=== PATIENT | female | born 1995 | race Caucasian/White ===

== ENCOUNTER 2018-12-20 22:32 | Emergency (ER) | payer OTHER ==
--- NOTE | 2018-12-20 22:43 | ED Physician Documentation ---
PD HPI FEMALE - Stated complaint Stated Complaint: FEM /8 WKS PREG - History obtained from History obtained from: Patient - History of Present Illness Timing - onset: How many days ago (6) Timing - duration: Days (6) Timing - details: Abrupt onset Associated symptoms: Pelvic pain, Vaginal bleeding Contributing factors: [employer] History: G (1), P (0) Recently seen: Clinic - Additional information Additional information: This is a 22-year-old who presents with complaints that she is last menstrual. Was October 25 she had been out hiking earlier last week Friday or Friday when she started to have a little bit of pink discharge. [place] hCG it was 31,000. She did not get any follow-up levels and she is unsure of her blood type. She has been resting for most of the week because she is been sick with a stuffy nose and a low-grade fever coughing. Today she was feeling better and more energetic so she did a lot of cleaning and tonight she was still noticing pink discharge and developed some pelvic cramping. She rates the cramping at a 5 out of 10. She has not felt dizzy. This is her first . Review of Systems Constitutional: reports: Fever Nose: reports: Rhinorrhea / runny nose, Congestion Respiratory: reports: Cough GI: reports: Abdominal Pain : reports: LMP (October 25), Vaginal bleeding PD PAST MEDICAL HISTORY - Allergies Allergies/Adverse Reactions: Allergies Allergy/AdvReac Type Severity Reaction Status Date / Time No Known Drug Allergies Allergy Verified 12/20/18 22:46 PD ED PE NORMAL - Vitals Vital signs reviewed: Yes - General General: Alert and oriented X 3, No acute distress, Well developed/nourished - HEENT HEENT: PERRL, Moist mucous membranes, Pharynx benign - Neck Neck: Supple, no meningeal sign, No adenopathy, Other (Thyroid is enlarged particularly the left lobe without palpable nodules.) - Cardiac Cardiac: RRR, No murmur - Respiratory Respiratory: No respiratory distress, Clear bilaterally, Other (She does have a dry cough.) - Abdomen Abdomen: Normal bowel sounds, Soft, Non tender, Non distended - Female Female : Deferred - Derm Derm: Other (Patient has vitiligo. She feels slightly clammy.) - Neuro Neuro: Alert and oriented X 3, Normal speech, Other (No gross neurological deficit.) - Psych Psych: Normal mood, Normal affect Results - Vitals Vitals: Vital Signs - 24 hr 12/20/18 12/21/18 12/21/18 22:38 01:43 02:55 Temperature 37.2 C 36.8 C Heart Rate 88 84 79 Respiratory 16 16 16 Rate Blood Pressure 135/101 H 126/82 H 126/85 H O2 Saturation 100 98 98 Oxygen O2 Source Room air - Labs Labs: Laboratory Tests 12/20/18 12/20/18 12/20/18 22:55 22:55 23:00 WBC 9.9 RBC 3.69 L Hgb 11.1 L Hct 33.2 L MCV 90.0 MCH 30.1 MCHC 33.4 RDW 12.8 Plt Count 250 MPV 10.2 Neut # (Auto) 5.7 Lymph # (Auto) 3.2 [place] # (Auto) 0.7 Eos # (Auto) 0.2 Baso # (Auto) 0.1 Absolute Nucleated RBC 0.00 Nucleated RBC % 0.0 HCG, Quant Urine Color YELLOW Urine Clarity CLEAR Urine pH 6.5 Ur Specific [place] 1.015 Urine Protein NEGATIVE Urine Glucose (UA) NEGATIVE Urine Ketones NEGATIVE Urine Occult Blood NEGATIVE Urine Nitrite NEGATIVE Urine Bilirubin NEGATIVE Urine Urobilinogen 0.2 (NORMAL) Ur Leukocyte Esterase NEGATIVE Ur Microscopic Review NOT INDICATED Urine Culture Comments NOT INDICATED Blood Type A POSITIVE 12/21/18 02:25 WBC RBC Hgb Hct MCV MCH MCHC RDW Plt Count MPV Neut # (Auto) Lymph # (Auto) [place] # (Auto) Eos # (Auto) Baso # (Auto) Absolute Nucleated RBC Nucleated RBC % HCG, Quant 82736.00 Urine Color Urine Clarity Urine pH Ur Specific [place] Urine Protein Urine Glucose (UA) Urine Ketones Urine Occult Blood Urine Nitrite Urine Bilirubin Urine Urobilinogen Ur Leukocyte Esterase Ur Microscopic Review Urine Culture Comments Blood Type - Rads (name of study) ultrsound Radiology: See rad report PD MEDICAL DECISION MAKING - ED course Complexity details: reviewed results, d/w patient ED course: The patient's blood type is a positive. The ultrasound showed a intrauterine consistent with 6-week gestation. Heart rate was a little slow at 115. Results were discussed with the patient a quantitative hCG is been added to her labs but had not yet been returned at the time of her discharge. OB can follow that report. Departure - Departure Disposition: 01 Home, Self Care Clinical Impression: Vaginal bleeding affecting early Condition: Good Instructions: Bleeding Early Preg Follow-Up: your,doctor [Other] Comments: The OB doctor can follow-up on the hcg level and decide if a repeat is needed. Pelvic rest - no tampons or intercourse until cleared by the OB. Return if increasing pain or other problems arise. Discharge Date/Time: 12/21/18 02:56
[2018-12-20 23:06] LABS: BILIRUBIN,URINE NEGATIVE (NEGATIVE); GLUCOSE, URINE (UA) NEGATIVE (NEGATIVE); KETONES,URINE (UA) NEGATIVE (NEGATIVE); LEUKOCYTE ESTERASE, URINE NEGATIVE (NEGATIVE); NITRITE,URINE NEGATIVE (NEGATIVE); OCCULT BLOOD,URINE NEGATIVE (NEGATIVE); PH,URINE 6.5 PH (5.0-7.5); PROTEIN,URINE NEGATIVE (NEGATIVE); UROBILINOGEN,URINE 0.2 (NORMAL) E.U./dL (NORMAL)
[2018-12-20 23:10] LABS: BASOPHILS # (AUTO) 0.1 10^3/uL (0.0-0.1); BASOPHILS % (AUTO) 0.9 %; EOSINOPHILS # (AUTO) 0.2 10^3/uL (0.0-0.7); EOSINOPHILS % (AUTO) 2.4 %; HGB - HEMOGLOBIN 11.1 g/dL (12.0-16.0); LYMPHOCYTES # (AUTO) 3.2 10^3/uL (1.5-3.5); LYMPHOCYTES % (AUTO) 31.8 %; MEAN CORPUSCULAR HEMOGLOBIN 30.1 pg (27.0-31.0); MEAN CORPUSCULAR HGB CONC 33.4 g/dL (32.0-36.0); MEAN PLATELET VOLUME 10.2 fL (7.9-10.8); MONOCYTES # (AUTO) 0.7 10^3/uL (0.0-1.0); MONOCYTES % (AUTO) 7.4 %; NEUTROPHILS # (AUTO) 5.7 10^3/uL (1.5-6.6); NEUTROPHILS % (AUTO) 57.1 %; PLT - PLATELET COUNT 250 10^3/uL (130-450); RED BLOOD COUNT 3.69 10^6/uL (4.20-5.40); RED CELL DISTRIBUTION WIDTH 12.8 % (12.0-15.0); WHITE BLOOD COUNT 9.9 x10^3/uL (4.8-10.8)
[2018-12-20 23:10] LABS: CLARITY,URINE CLEAR (CLEAR)
--- NOTE | 2018-12-21 00:11 | Ultrasound Report ---
Reason: vaginal bleeding; Procedure Date: 12/20/2018 Accession Number: [id number] / [id number] Procedure: US - OB First Trimester CPT Code: FULL RESULT: EXAM: FIRST TRIMESTER OBSTETRIC ULTRASOUND (Less than 11 weeks) EXAM DATE: 12/20/2018 11:41 PM. CLINICAL HISTORY: Vaginal bleeding; . LMP: 10/25/2018. COMPARISONS: None. TECHNIQUE: Transabdominal and transvaginal ultrasound examination with static image documentation. CLINICAL DATES: EGA 8 weeks 0 days with CHRISTAL 08/01/2019 based on LMP. ASSESSMENT: Gestational Sac: Single intrauterine. Mean gestational sac diameter: 15 mm = 6 weeks 2 days. Embryo: CRL (crown-rump length) 5.7 mm = 6 weeks 3 days. Cardiac activity: 115 beats per minute. Yolk sac: 4 mm. Amniotic fluid: Not accurately assessed at this gestational age. Early placenta: Not visible at this gestational age. Other: No perigestational fluid collection demonstrated. MATERNAL STRUCTURES: Uterus: Anteverted. Unremarkable. Cervix: Closed. Right Ovary/Adnexa: The ovary measures 3.6 x 2.3 x 2.8 cm, volume 12.1 cc. Corpus luteum measuring 2.4 x 1.8 x 2.1 cm. Left Ovary/Adnexa: The ovary measures 3.1 x 1.3 x 1.0 cm, volume 2.1 cc. Unremarkable. Paraovarian cyst measuring 1.7 x 1.5 x 1.2 cm. Free Fluid: None. Other: None. IMPRESSION: 1. Single viable intrauterine at EGA 6 weeks 3 days with CHRISTAL 08/12/2019 based on crown-rump length, which is discordant with clinical dates. 2. Assigned dating is CHRISTAL 08/12/2019 based on current US. 3. Borderline heart rate of 115 bpm. RADIA
[2018-12-21 02:56] VITALS: BP 126/85
== END 2018-12-21 02:56 | disposition home or self-care (01) ==
LOC: ED 22:32
DX: O20.9 Hemorrhage in early pregnancy, unspecified (principal); Z3A.08 8 weeks gestation of pregnancy
CPT/HCPCS: 36415; 76801; 76817; 81001; 81003; 84702; 85025; 86900; 86901; 87086; 99282; 99283

== ENCOUNTER 2019-06-22 10:11 | Emergency (ER) | payer OTHER ==
[2019-06-22 10:30] VITALS: BP 120/80
--- NOTE | 2019-06-22 10:55 | ED Physician Documentation ---
History of Present Illness - Stated complaint Stated Complaint: FEMALE - 32WK OB - Chief complaint Chief Complaint: General - History obtained from History obtained from: Patient - History of Present Illness Timing: How many weeks ago (2) Pain level max: 3 Pain level now: 2 - Additonal information Additional information: 23-year-old female, 32 weeks , 1 para 0. She complains of vaginal discharge for the last week and 1/2 to 2 weeks. She had been on Monistat and metronidazole earlier in her . Nothing recently. No change in sexual partners. No STD exposure. No fevers. No vaginal bleeding. No spotting. No abdominal pain. States that the discharge is white. Review of Systems Constitutional: denies: Fever, Chills Cardiac: denies: Chest pain / pressure Respiratory: denies: Cough GI: denies: Vomiting, Diarrhea : denies: Dysuria, Frequency, Hesitancy Skin: denies: Rash PD PAST MEDICAL HISTORY - Past Medical History Past Medical History: No - Past Surgical History Past Surgical History: No - Present Medications Home Medications: Ambulatory Orders Medication Instructions Recorded Confirmed Miconazole Nitrate [Miconazole 7] 1 applic VG DAILY 7 Days #1 06/22/19 cream.[email or web address] - Allergies Allergies/Adverse Reactions: Allergies Allergy/AdvReac Type Severity Reaction Status Date / Time iodine Allergy Hives Verified 06/22/19 10:24 - Social History Does the pt smoke?: No Smoking Status: Never smoker Does the pt drink ETOH?: No Does the pt have substance abuse?: No - Immunizations Immunizations are current?: Yes PD ED PE NORMAL - Vitals Vital signs reviewed: Yes - General General: Alert and oriented X 3, No acute distress, Well developed/nourished - HEENT HEENT: Moist mucous membranes - Neck Neck: Supple, no meningeal sign - Cardiac Cardiac: RRR - Respiratory Respiratory: Clear bilaterally - Abdomen Abdomen: Soft, Non tender, Other (Gravid) - Female Female : Pt declined - Derm Derm: Warm and dry - Neuro Neuro: Alert and oriented X 3 - Psych Psych: Normal mood, Normal affect Results - Vitals Vitals: Vital Signs - 24 hr 06/22/19 10:24 Temperature 36.9 C Heart Rate 80 Respiratory 16 Rate Blood Pressure 120/80 O2 Saturation 99 Oxygen O2 Source Room air - Labs Labs: Laboratory Tests 06/22/19 06/22/19 10:50 10:55 Urine Color YELLOW Urine Clarity CLEAR Urine pH 7.0 Ur Specific [place] 1.020 Urine Protein NEGATIVE Urine Glucose (UA) NEGATIVE Urine Ketones NEGATIVE Urine Occult Blood NEGATIVE Urine Nitrite NEGATIVE Urine Bilirubin NEGATIVE Urine Urobilinogen 0.2 (NORMAL) Ur Leukocyte Esterase TRACE H Urine RBC 0-5 Urine WBC 0-3 Ur Squamous Epith Cells RARE Squamous Urine Bacteria Rare Urine Mucus Few Strands Ur Microscopic Review INDICATED Urine Culture Comments INDICATED C. glabrata (PCR) NEGATIVE C. krusei (PCR) NEGATIVE Judi species DNA POSITIVE A T. vaginalis (PCR) NEGATIVE Bact Vaginosis (PCR) NEGATIVE PD MEDICAL DECISION MAKING - ED course Complexity details: reviewed results, re-evaluated patient, considered differential, d/w patient, d/w wine consultant ED course: Swabs for bacterial vaginitis and gonorrhea, chlamydia, trichomonas, etc. were sent to the lab. We will have her call back for the results so that we can call in prescriptions for her. Patient counseled regarding signs and symptoms for which I believe and urgent re-evaluation would be necessary. Patient with good understanding of and agreement to plan and is comfortable going home at this time This document was made in part using voice recognition software. While efforts are made to proofread this document, sound alike and grammatical errors may occur. Results were reviewed. Patient was called and will place back on miconazole. Discussed the case with OB, Dr. Daniel as well. Dr. Daniel also states that the patient can use Monistat once a week to help prevent recurrence for the remainder of her . The miconazole will be for 7 days. I called and discussed all results and plan of care with the patient. Prescription sent to [facility] in [place]. Departure - Departure Disposition: 01 Home, Self Care Clinical Impression: Vaginal discharge during Qualifiers: Trimester: third trimester Qualified Code(s): O26.893 - Other specified related conditions, third trimester Condition: Good Instructions: ED Vaginosis Bacterial Follow-Up: Weston Florentino ARNP [Primary Care Provider] - Within 1 week (if not better) Prescriptions: Miconazole Nitrate [Miconazole 7] 1 applic VG DAILY 7 Days #1 cream.appl Comments: Your swabs were sent to the lab today, the first swabs should be done before 3 PM today. If you do not hear from us by 3 PM, call back to the emergency department and we will check on your specimen. Return if you worsen Discharge Date/Time: 06/22/19 11:12
[2019-06-22 11:20] LABS: BILIRUBIN,URINE NEGATIVE (NEGATIVE); GLUCOSE, URINE (UA) NEGATIVE (NEGATIVE); KETONES,URINE (UA) NEGATIVE (NEGATIVE); LEUKOCYTE ESTERASE, URINE TRACE (NEGATIVE); NITRITE,URINE NEGATIVE (NEGATIVE); OCCULT BLOOD,URINE NEGATIVE (NEGATIVE); PROTEIN,URINE NEGATIVE (NEGATIVE); UROBILINOGEN,URINE 0.2 (NORMAL) E.U./dL (NORMAL)
[2019-06-22 11:21] LABS: CLARITY,URINE CLEAR (CLEAR)
[2019-06-22 11:29] LABS: BACTERIA,URINE Rare /HPF (None Seen); MUCUS,URINE Few Strands; RBC,URINE 0-5 /HPF (0-5); SQUAMOUS EPITHELIAL CELL,UR RARE Squamous (<= Few)
[2019-06-22 13:09] LABS: CANDIDA GROUP DNA POSITIVE (NEGATIVE); CANDIDA KRUSEI DNA NEGATIVE (NEGATIVE); TRICHOMONAS VAGINALIS DNA NEGATIVE (NEGATIVE)
[2019-06-22 21:18] LABS: TRICHOMONAS VAGINALIS DNA NEGATIVE (NEGATIVE)
== END 2019-06-22 11:12 | disposition home or self-care (01) ==
LOC: ED 10:11
DX: O99.89 Other specified diseases and conditions complicating pregnancy, childbirth and the puerperium (principal); N89.8 Other specified noninflammatory disorders of vagina; Z3A.32 32 weeks gestation of pregnancy
CPT/HCPCS: 81001; 81003; 87086; 87491; 87591; 87661; 87801; 99283; 99284

== ENCOUNTER 2019-07-31 05:47 | Inpatient (IN) | payer OTHER ==
[2019-07-31 06:37] LABS: RUPTURE OF MEMBRANES PLUS POSITIVE (NEGATIVE)
[2019-07-31] MEDS ORDERED: AMPICILLIN 2 GM in SODIUM CHLORIDE 0.9% MINIBAG 100 ML IV ONE (07:02)
[2019-07-31 07:54] LABS: BASOPHILS # (AUTO) 0.1 10^3/uL (0.0-0.1); BASOPHILS % (AUTO) 0.5 %; EOSINOPHILS % (AUTO) 0.2 %; HGB - HEMOGLOBIN 12.2 g/dL (12.0-16.0); LYMPHOCYTES # (AUTO) 1.2 10^3/uL (1.5-3.5); LYMPHOCYTES % (AUTO) 10.1 %; MEAN CORPUSCULAR HEMOGLOBIN 30.1 pg (27.0-31.0); MEAN CORPUSCULAR HGB CONC 33.5 g/dL (32.0-36.0); MEAN CORPUSCULAR VOLUME 89.9 fL (81.0-99.0); MEAN PLATELET VOLUME 11.8 fL (7.9-10.8); MONOCYTES # (AUTO) 0.7 10^3/uL (0.0-1.0); MONOCYTES % (AUTO) 5.7 %; NEUTROPHILS # (AUTO) 9.9 10^3/uL (1.5-6.6); NEUTROPHILS % (AUTO) 83.1 %; PLT - PLATELET COUNT 222 10^3/uL (130-450); RED BLOOD COUNT 4.05 10^6/uL (4.20-5.40); RED CELL DISTRIBUTION WIDTH 13.7 % (12.0-15.0); WHITE BLOOD COUNT 11.9 x10^3/uL (4.8-10.8)
[2019-07-31] MEDS: LACTATED RINGERS 1,000 ML IV SCH ×3 (08:29→18:12)
[2019-07-31] MEDS: SODIUM CHLORIDE FLUSH 0.9% 10 ML SYRINGE IVP SCH ×2 (08:30→18:13)
[2019-07-31] MEDS: MAGNESIUM SULFATE 2 GRAM 2 GM/50 ML BAG IV SCH ×2 (09:58→10:23)
[2019-07-31 09:59] LABS: BASOPHILS # (AUTO) 0.1 10^3/uL (0.0-0.1); BASOPHILS % (AUTO) 0.4 %; EOSINOPHILS % (AUTO) 0.3 %; HGB - HEMOGLOBIN 11.2 g/dL (12.0-16.0); LYMPHOCYTES # (AUTO) 0.7 10^3/uL (1.5-3.5); LYMPHOCYTES % (AUTO) 6.4 %; MEAN CORPUSCULAR HEMOGLOBIN 29.1 pg (27.0-31.0); MEAN CORPUSCULAR HGB CONC 32.9 g/dL (32.0-36.0); MEAN CORPUSCULAR VOLUME 88.3 fL (81.0-99.0); MEAN PLATELET VOLUME 10.8 fL (7.9-10.8); MONOCYTES # (AUTO) 0.5 10^3/uL (0.0-1.0); MONOCYTES % (AUTO) 4.1 %; NEUTROPHILS # (AUTO) 10.2 10^3/uL (1.5-6.6); NEUTROPHILS % (AUTO) 88.4 %; PLT - PLATELET COUNT 206 10^3/uL (130-450); RED BLOOD COUNT 3.85 10^6/uL (4.20-5.40); RED CELL DISTRIBUTION WIDTH 13.8 % (12.0-15.0); WHITE BLOOD COUNT 11.6 x10^3/uL (4.8-10.8)
[2019-07-31] MEDS ORDERED: ROPIVACAINE 0.2% 200 MG/100 ML BAG EP ONE (10:03)
[2019-07-31] MEDS: MAGNESIUM SULFATE IN WATER 20 GM/500 ML IV.SOLN IV SCH ×2 (10:43→20:48)
[2019-07-31] MEDS ORDERED: LACTATED RINGERS 500 ML IV ONE (10:46)
[2019-07-31] MEDS ORDERED: ePHEDrine 50 MG/ML VIAL IVP PRN (10:46)
[2019-07-31] MEDS ORDERED: ONDANSETRON 4 MG/2 ML VIAL IVP PRN ×2 (10:46)
[2019-07-31] MEDS ORDERED: METOCLOPRAMIDE 10 MG/2 ML VIAL IVP PRN (10:46)
[2019-07-31] MEDS ORDERED: NALOXONE 0.4 MG/ML VIAL IVP PRN (10:46)
[2019-07-31] MEDS ORDERED: diphenhydrAMINE INJ 50 MG/ML VIAL IVP PRN ×2 (10:46)
[2019-07-31] MEDS ORDERED: NALBUPHINE 10 MG/ML AMP IVP PRN ×2 (10:46)
--- NOTE | 2019-07-31 10:52 | ANESTHESIA ---
Pre-Anesthesia VS, & Labs - Diagnosis Active labor, suspected pre eclampsia - Procedure Continuous labor epidural Vital Signs: Temp Pulse Resp BP Pulse Ox 36.7 C 83 18 147/97 H 07/31/19 06:01 07/31/19 06:01 07/31/19 06:01 07/31/19 06:01 Height 5 ft 1 in Weight (kg) 65.771 kg Body Mass Index 26.4 - NPO Other (ice chips) - Is Patient ?: Yes - Lab Results Current Lab Results: Laboratory Tests 07/31/19 09:50: Uric Acid 7.0, AST 20 07/31/19 09:50: WBC 11.6 H, RBC 3.85 L, Hgb 11.2 L, Hct 34.0 L, MCV 88.3, MCH 29.1, MCHC 32.9, RDW 13.8, Plt Count 206, MPV 10.8, Neut # (Auto) 10.2 H, Lymph # (Auto) 0.7 L, [place] # (Auto) 0.5, Eos # (Auto) 0.0, Baso # (Auto) 0.1, Absolute Nucleated RBC 0.00, Nucleated RBC % 0.0 07/31/19 09:50: Lactate Dehydrogenase 155 07/31/19 07:20: WBC 11.9 H, RBC 4.05 L, Hgb 12.2, Hct 36.4 L, MCV 89.9, MCH 30.1, MCHC 33.5, RDW 13.7, Plt Count 222, MPV 11.8 H, Neut # (Auto) 9.9 H, Lymph # (Auto) 1.2 L, [place] # (Auto) 0.7, Eos # (Auto) 0.0, Baso # (Auto) 0.1, Absolute Nucleated RBC 0.00, Nucleated RBC % 0.0 Fish Bones: 07/31/19 09:50 Home Medications and Allergies Active Medications Lactated Ringer's (Lr) 1,000 mls @ 150 mls/hr IV .Q6H40M [facility] Last Admin: 07/31/19 08:29 Dose: 150 mls/hr Magnesium Sulfate (Magnesium Sulf 20 G/500 Ml Bag) 20 gm in 500 mls @ 50 mls/hr IV .Q10H [facility] Last Admin: 07/31/19 10:43 Dose: 2 gm/hr, 50 mls/hr Oxytocin/Sodium Chloride (Pitocin/Sodium Chloride) 500 mls @ 1 mls/hr IV TITR [facility]WOT; Protocol Sodium Chloride (Normal Saline Flush 0.9%) 10 ml IVP PRN PRN PRN Reason: NEEDED PER PROVIDER ORDERS Sodium Chloride (Normal Saline Flush 0.9%) 10 ml IVP 0100,0900,1700 HIWOT Last Admin: 07/31/19 08:30 Dose: 10 ml Allergies/Adverse Reactions: Allergies Allergy/AdvReac Type Severity Reaction Status Date / Time iodine Allergy Hives Verified 06/22/19 10:24 Anes History & Medical History - Anesthetic History Anesthesia Complications: reports: No previous complications Family history of Anesthesia Complications: Denies Family history of Malignant Hyperthermia: Denies - Medical History Cardiovascular: reports: None Pulmonary: reports: None Gastrointestinal: reports: None Urinary: reports: None Neuro: reports: None Musculoskeletal: reports: None Endocrine/Autoimmune: reports: HyPOthyroidism Blood Disorders: reports: None Skin: reports: None Smoking Status: Never smoker Psychosocial: reports: No issues indicated Exam General: Alert, Oriented x3, Cooperative, Mild distress Dental: WNL Mouth Opening: Greater than 4 Fingerbreadths Neck Mobility: Normal Mallampati classification: II Thyromental Distance: greater than 6 cm Plan Anesthesia Type: Epidural Consent for Procedure(s) Verified and Reviewed: Yes Code Status: Attempt Resuscitation ASA classification: 2-Mild systemic disease Is this case an emergency?: Yes
[2019-07-31] MEDS ORDERED: OXYTOCIN/SODIUM CHLORIDE 500 ML IV SCH (11:00)
--- NOTE | 2019-07-31 12:35 | PREOP HISTORY & PHYSICAL ---
DATE OF SERVICE: 07/31/2019 Physician: Santos Celestin MD IDENTIFICATION: The patient is a 23-year-old G1, P0, female whose EDC was 08/11/2019. This was determined on a 6-weeks ultrasound. This makes her 38 weeks EGA. She initially started her care at [facility] and was transferred to [facility] because of their change in delivery status. This was done roughly at 36 weeks. She was being seen there; however, because her labor and delivery unit was closed, she transferred to us today. HISTORY OF PRESENT ILLNESS: At 4:20 this morning, the patient noted fluid leak from the vagina. She states she was unstoppable. Rather soon thereafter, she developed contractions. She presented to labor and delivery at 5:20, at which time she was checked. Her ROM Plus was positive; however, she was fern negative. She was magnolia over time. Initially, her blood pressure at that point was 147/97. She is being admitted for labor. Her OB care started at 6 weeks EGA. It was unremarkable with the exception that she had elevated TSH and was started on Synthroid. She was also noted to be GBS positive. She was noted to have the last 2 visits urine which showed 3+ proteinuria. The chart states that she had PIH labs done; however, these are not available to me at this time. They were interpreted as normal. The remainder of her OB care has been unremarkable. PAST MEDICAL HISTORY: Positive for hypothyroidism. PAST SURGICAL HISTORY: [place] teeth. ALLERGIES: NONE KNOWN. CURRENT MEDICATIONS 1. Prozac. 2. vitamins. 3. Iron. 4. Synthroid. HABITS: The patient denies use of alcohol, tobacco, street or addictive drugs. SOCIAL HISTORY: The patient is to active [employer], works as a homemaker. PHYSICAL EXAMINATION VITAL SIGNS: On admission, blood pressure initially was 147/97. With time, upon my arrival, it was 151/91. HEENT: Pupils are equal and round. Extraocular muscles are intact. Thyroid is not palpably enlarged. HEART: Regular rate and rhythm, without murmurs. LUNGS: Lung corral are clear without rales or wheezes. BACK: No spinal or CVA tenderness noted. PELVIC: Shows a cervix which was initially 4+, 100%, and -1 vertex presentation. DTRs were very brisk, though, and she had 2 beats of clonus bilaterally. She denied any headaches, scotoma or any visual changes. IMPRESSION 1. A 23-year-old primigravida at 38 weeks estimated gestational age. 2. Preeclampsia. 3. Spontaneous rupture of membranes. 4. Hypothyroidism. PLAN: The patient had an epidural placed for labor analgesia. She was started on magnesium because of her increased evidence of [employer] irritability. We will augment with Pitocin because her contractions have waned. The patient has also been placed on amoxicillin for her group B strep prophylaxis. We will monitor and plan to deliver vaginally. TD: 07/31/2019 12:16 MTDD
[2019-07-31] MEDS: AMPICILLIN 1 GM in SODIUM CHLORIDE 0.9% MINIBAG 100 ML IV SCH ×2 (12:49→18:09)
[2019-07-31 13:58] LABS: CREATININE,URINE 214.7 mg/dL
[2019-07-31 13:59] LABS: PROTEIN/CREATININE RATIO,URINE 6.4 (<=0.2)
[2019-07-31] MEDS ORDERED: LABETALOL 100 MG TABLET PO SCH (14:45)
[2019-07-31] MEDS ORDERED: LABETALOL 5 MG/1 ML 20 ML MDV IVP ONE (14:49)
--- NOTE | 2019-07-31 14:53 | PROVIDER PROGRESS NOTE ---
Labor Progress Note - Uterine Monitoring Contraction Frequency (min/apart): 4 Contraction Intensity: positive: Moderate to strong Uterine Resting Tone: positive: Soft - Monitoring Monitor Mode: positive: External ultrasound Heart Rate Variability: positive: Moderate (6-25 bmp) Accelerations: positive: Present, 15x15 Decelerations: positive: None Strip Review: positive: Category I - Vaginal Exam Dilation (in cm): 10 Effacement (%): 100 Station: 1 Cervical Position: Anterior - Labor Progress Note Labor Progress Note/Additional Text: C/C/+1 ANDERSON BP 160/100 Start IV Labatolol 10 mg Push 30 min.
[2019-07-31] MEDS: SODIUM CHLORIDE FLUSH 0.9% 10 ML SYRINGE IVP PRN (15:01)
[2019-07-31] MEDS ORDERED: OXYTOCIN/SODIUM CHLORIDE 500 ML IV PRN (16:16)
[2019-07-31] MEDS ORDERED: LIDOCAINE-MPF 1% 30 ML VIAL ID PRN (16:16)
[2019-07-31] MEDS ORDERED: LIDOCAINE-MPF 1% 30 ML VIAL ONE (16:16)
[2019-07-31] MEDS ORDERED: WITCH HAZEL/GLYCERIN 1 PAD TOP PRN (17:05)
--- NOTE | 2019-07-31 17:27 | DELIVERY NOTE ---
Delivery Note - Labor Labor: positive: Spontaneous - Delivery Method Delivery Method: positive: Spontaneous vaginal delivery - Presentation Presentation: positive: Vertex, ANDERSON - right occiput anterior - Nuchal Cord Nuchal Cord: positive: None - Anesthetic Anesthetic Type: Anesthetic: positive: Lidocaine - 1% plain Volume: positive: Other (25) - Amniotic Fluid Description Amniotic Fluid Description: positive: Clear - Episiotomy Type Episiotomy Type: positive: None - Laceration Laceration: positive: 1st degree, 2nd degree, Labial, Perineal - Suture Suture Type: positive: Vicryl Suture Size: positive: 3-0 - Delivery Outcome Delivery Outcome: positive: Livebirth - [place] : positive: Placed in direct skin contact with mother, Bulb syringe, Stimulated, Warmed sex: positive: Female (02/15) - Placenta Placenta: positive: Intact, Spontaneous - Post Delivery Events Post Delivery Events: positive: No post delivery events - Delivery Comments (Free Text/Narrative) Delivery Comments (Free Text/Narrative): Because the patient is worsening preeclampsia. She received labetalol 10 mg IV push. She progressed to complete at 1445 a fore bag was ruptured and noted to have clear amniotic fluid. At 1515 she was felt to be pushy and so pushing was initiated at 1518. She pushed exceptionally well. And at 1616 a live female with Apgars 9 and 9 was delivered in the right occiput anterior position. The infant was stimulated placed on mother's abdomen and cord clamped roughly a minute and a half after delivery. At this point cord blood samples were obtained. The placenta was delivered spontaneously at 1624 inspected and felt to be intact. She was noted to have a perineal laceration second-degree as well as a left labial laceration first-degree these were both closed with 3-0 Vicryl. Patient tolerated procedure well estimated blood loss at time of delivery was 350 cc. Sponge needle counts were both correct.
[2019-07-31] MEDS ORDERED: MAGNESIUM SULFATE IN WATER 20 GM/500 ML IV.SOLN IV SCH (18:00)
[2019-07-31] MEDS: IBUPROFEN 600 MG TABLET PO SCH (18:45)
[2019-07-31] MEDS ORDERED: LIDOCAINE 2% URO-JET 5 ML SYRINGE UR ONE ×2 (20:00→20:15)
[2019-07-31] MEDS: LABETALOL 100 MG TABLET PO SCH (20:27)
[2019-07-31 21:16] LABS: CREATININE,URINE 54.9 mg/dL; PROTEIN/CREATININE RATIO,URINE 2.6 (<=0.2)
[2019-08-01 00:34] LABS: CALCIUM 7.2 mg/dL (8.5-10.3); CREATININE 0.9 mg/dL (0.4-1.0)
[2019-08-01] MEDS: LACTATED RINGERS 1,000 ML IV SCH (03:00)
[2019-08-01 06:04] LABS: BASOPHILS % (AUTO) 0.3 %; EOSINOPHILS % (AUTO) 0.1 %; HGB - HEMOGLOBIN 9.7 g/dL (12.0-16.0); LYMPHOCYTES # (AUTO) 1.5 10^3/uL (1.5-3.5); LYMPHOCYTES % (AUTO) 13.1 %; MEAN CORPUSCULAR HGB CONC 32.9 g/dL (32.0-36.0); MEAN CORPUSCULAR VOLUME 88.1 fL (81.0-99.0); MEAN PLATELET VOLUME 10.9 fL (7.9-10.8); MONOCYTES # (AUTO) 0.8 10^3/uL (0.0-1.0); MONOCYTES % (AUTO) 6.8 %; NEUTROPHILS # (AUTO) 8.8 10^3/uL (1.5-6.6); NEUTROPHILS % (AUTO) 79.2 %; PLT - PLATELET COUNT 194 10^3/uL (130-450); RED BLOOD COUNT 3.35 10^6/uL (4.20-5.40); WHITE BLOOD COUNT 11.1 x10^3/uL (4.8-10.8)
[2019-08-01] MEDS: LABETALOL 100 MG TABLET PO SCH ×3 (06:09→23:30)
[2019-08-01 06:20] LABS: ALBUMIN 1.8 g/dL (3.2-5.5); ALBUMIN/GLOBULIN RATIO 0.7 (1.0-2.2); BILIRUBIN,TOTAL 0.3 mg/dL (0.2-1.0); CALCIUM 7.2 mg/dL (8.5-10.3); CREATININE 0.9 mg/dL (0.4-1.0); TOTAL PROTEIN 4.5 g/dL (6.7-8.2); URIC ACID 7.4 mg/dL (2.6-7.2)
[2019-08-01 06:28] LABS: MAGNESIUM 8.6 mg/dL (1.7-2.8)
[2019-08-01] MEDS: LEVOTHYROXINE 100 MCG TABLET PO SCH (07:13)
[2019-08-01] MEDS: IBUPROFEN 600 MG TABLET PO SCH ×2 (07:43→23:30)
[2019-08-01] MEDS: MAGNESIUM SULFATE IN WATER 20 GM/500 ML IV.SOLN IV SCH (07:44)
[2019-08-01] MEDS: DOCUSATE SODIUM 100 MG CAPSULE PO SCH (07:44)
[2019-08-01 09:22] LABS: CREATININE,URINE 49.3 mg/dL; PROTEIN/CREATININE RATIO,URINE 1.9 (<=0.2)
--- NOTE | 2019-08-01 09:37 | PROVIDER PROGRESS NOTE ---
Subjective - Prog Note Date Prog Note Date: 08/01/19 Prog Note Time: 09:35 - Subjective Pt reports feeling: Improved Subjective: Pain 07/19 evelin SCHROEDER. Objective - Vital Signs/Intake & Output Reviewed Vital Signs: Yes Vital Signs: Vital Signs x48h Temp Pulse Resp BP Pulse Ox 08/01/19 08:00 36.4 C L 78 16 135/94 H 100 08/01/19 07:30 81 130/84 H 08/01/19 06:00 78 18 142/86 H 98 08/01/19 04:20 86 18 126/76 95 08/01/19 02:05 36.5 C 18 128/88 H Intake & Output: Intake & Output 07/29/19 07/30/19 07/31/19 08/01/19 23:59 23:59 23:59 23:59 Intake Total 1675 1225 Output Total 1195 1025 Balance 480 200 - Objective General Appearance: positive: No acute distress, Alert Respiratory: positive: Chest non-tender, No respiratory distress, Breath sounds nml Cardiovascular: positive: Regular rate & rhythm, No murmur, No gallop Abdomen: positive: Non-tender, Mass (u-2) Back: negative: CVA tenderness (R), CVA tenderness (L) Extremities: negative: Calf tenderness, Alexandria's sign/cords Reflexes: Knee (R): 4+ (one beat clonus), Knee (L): 4+ (one beat clonus) - Lab Results Fish Bones: 08/01/19 05:55 08/01/19 05:55 Other Labs: Lab Results x24hrs 08/01/19 08/01/19 08/01/19 Range/Units 09:00 05:55 05:55 WBC 11.1 H (4.8-10.8) x10^3/uL RBC 3.35 L (4.20-5.40) 10^6/uL Hgb 9.7 L (12.0-16.0) g/dL Hct 29.5 L (37.0-47.0) % MCV 88.1 (81.0-99.0) fL MCH 29.0 (27.0-31.0) pg MCHC 32.9 (32.0-36.0) g/dL RDW 14.0 (12.0-15.0) % Plt Count 194 (130-450) 10^3/uL MPV 10.9 H (7.9-10.8) fL Neut # (Auto) 8.8 H (1.5-6.6) 10^3/uL Lymph # (Auto) 1.5 (1.5-3.5) 10^3/uL [place] # (Auto) 0.8 (0.0-1.0) 10^3/uL Eos # (Auto) 0.0 (0.0-0.7) 10^3/uL Baso # (Auto) 0.0 (0.0-0.1) 10^3/uL Absolute Nucleated RBC 0.00 x10^3/uL Nucleated RBC % 0.0 /100WBC Sodium 134 L (135-145) mmol/L Potassium 4.0 (3.5-5.0) mmol/L Chloride 105 (101-111) mmol/L Carbon Dioxide 21 (21-32) mmol/L Anion Gap 8.0 (6-13) BUN 13 (6-20) mg/dL Creatinine 0.9 (0.4-1.0) mg/dL Estimated GFR (MDRD) 78 L (>89) Glucose 134 H (70-100) mg/dL Uric Acid 7.4 H (2.6-7.2) mg/dL Calcium 7.2 L (8.5-10.3) mg/dL Magnesium 8.6 H* (1.7-2.8) mg/dL Total Bilirubin 0.3 (0.2-1.0) mg/dL AST 26 (10-42) IU/L ALT 10 (10-60) IU/L Alkaline Phosphatase 135 H (42-121) IU/L Lactate Dehydrogenase (91-225) IU/L Total Protein 4.5 L (6.7-8.2) g/dL Albumin 1.8 L (3.2-5.5) g/dL Globulin 2.7 (2.1-4.2) g/dL Albumin/Globulin Ratio 0.7 L (1.0-2.2) Urine Creatinine 49.3 mg/dL Ur Total Protein Timed 94 mg/dL Protein/Creatinin Ratio 1.9 H (<=0.2) 07/31/19 07/31/19 07/31/19 Range/Units 23:01 23:01 20:25 WBC (4.8-10.8) x10^3/uL RBC (4.20-5.40) 10^6/uL Hgb (12.0-16.0) g/dL Hct (37.0-47.0) % MCV (81.0-99.0) fL MCH (27.0-31.0) pg MCHC (32.0-36.0) g/dL RDW (12.0-15.0) % Plt Count (130-450) 10^3/uL MPV (7.9-10.8) fL Neut # (Auto) (1.5-6.6) 10^3/uL Lymph # (Auto) (1.5-3.5) 10^3/uL [place] # (Auto) (0.0-1.0) 10^3/uL Eos # (Auto) (0.0-0.7) 10^3/uL Baso # (Auto) (0.0-0.1) 10^3/uL Absolute Nucleated RBC x10^3/uL Nucleated RBC % /100WBC Sodium 131 L (135-145) mmol/L Potassium 4.0 (3.5-5.0) mmol/L Chloride 104 (101-111) mmol/L Carbon Dioxide 19 L (21-32) mmol/L Anion Gap 8.0 (6-13) BUN 15 (6-20) mg/dL Creatinine 0.9 (0.4-1.0) mg/dL Estimated GFR (MDRD) 78 L (>89) Glucose 109 H (70-100) mg/dL Uric Acid (2.6-7.2) mg/dL Calcium 7.2 L (8.5-10.3) mg/dL Magnesium 7.3 H* (1.7-2.8) mg/dL Total Bilirubin (0.2-1.0) mg/dL AST (10-42) IU/L ALT (10-60) IU/L Alkaline Phosphatase (42-121) IU/L Lactate Dehydrogenase (91-225) IU/L Total Protein (6.7-8.2) g/dL Albumin (3.2-5.5) g/dL Globulin (2.1-4.2) g/dL Albumin/Globulin Ratio (1.0-2.2) Urine Creatinine 54.9 mg/dL Ur Total Protein Timed 141 mg/dL Protein/Creatinin Ratio 2.6 H (<=0.2) 07/31/19 07/31/19 07/31/19 Range/Units 17:30 13:11 09:50 WBC (4.8-10.8) x10^3/uL RBC (4.20-5.40) 10^6/uL Hgb (12.0-16.0) g/dL Hct (37.0-47.0) % MCV (81.0-99.0) fL MCH (27.0-31.0) pg MCHC (32.0-36.0) g/dL RDW (12.0-15.0) % Plt Count (130-450) 10^3/uL MPV (7.9-10.8) fL Neut # (Auto) (1.5-6.6) 10^3/uL Lymph # (Auto) (1.5-3.5) 10^3/uL [place] # (Auto) (0.0-1.0) 10^3/uL Eos # (Auto) (0.0-0.7) 10^3/uL Baso # (Auto) (0.0-0.1) 10^3/uL Absolute Nucleated RBC x10^3/uL Nucleated RBC % /100WBC Sodium (135-145) mmol/L Potassium (3.5-5.0) mmol/L Chloride (101-111) mmol/L Carbon Dioxide (21-32) mmol/L Anion Gap (6-13) BUN (6-20) mg/dL Creatinine (0.4-1.0) mg/dL Estimated GFR (MDRD) (>89) Glucose (70-100) mg/dL Uric Acid 7.0 (2.6-7.2) mg/dL Calcium (8.5-10.3) mg/dL Magnesium 6.0 H* (1.7-2.8) mg/dL Total Bilirubin (0.2-1.0) mg/dL AST 20 (10-42) IU/L ALT (10-60) IU/L Alkaline Phosphatase (42-121) IU/L Lactate Dehydrogenase (91-225) IU/L Total Protein (6.7-8.2) g/dL Albumin (3.2-5.5) g/dL Globulin (2.1-4.2) g/dL Albumin/Globulin Ratio (1.0-2.2) Urine Creatinine 214.7 mg/dL Ur Total Protein Timed 1374 mg/dL Protein/Creatinin Ratio 6.4 H (<=0.2) 07/31/19 07/31/19 Range/Units 09:50 09:50 WBC 11.6 H (4.8-10.8) x10^3/uL RBC 3.85 L (4.20-5.40) 10^6/uL Hgb 11.2 L (12.0-16.0) g/dL Hct 34.0 L (37.0-47.0) % MCV 88.3 (81.0-99.0) fL MCH 29.1 (27.0-31.0) pg MCHC 32.9 (32.0-36.0) g/dL RDW 13.8 (12.0-15.0) % Plt Count 206 (130-450) 10^3/uL MPV 10.8 (7.9-10.8) fL Neut # (Auto) 10.2 H (1.5-6.6) 10^3/uL Lymph # (Auto) 0.7 L (1.5-3.5) 10^3/uL [place] # (Auto) 0.5 (0.0-1.0) 10^3/uL Eos # (Auto) 0.0 (0.0-0.7) 10^3/uL Baso # (Auto) 0.1 (0.0-0.1) 10^3/uL Absolute Nucleated RBC 0.00 x10^3/uL Nucleated RBC % 0.0 /100WBC Sodium (135-145) mmol/L Potassium (3.5-5.0) mmol/L Chloride (101-111) mmol/L Carbon Dioxide (21-32) mmol/L Anion Gap (6-13) BUN (6-20) mg/dL Creatinine (0.4-1.0) mg/dL Estimated GFR (MDRD) (>89) Glucose (70-100) mg/dL Uric Acid (2.6-7.2) mg/dL Calcium (8.5-10.3) mg/dL Magnesium (1.7-2.8) mg/dL Total Bilirubin (0.2-1.0) mg/dL AST (10-42) IU/L ALT (10-60) IU/L Alkaline Phosphatase (42-121) IU/L Lactate Dehydrogenase 155 (91-225) IU/L Total Protein (6.7-8.2) g/dL Albumin (3.2-5.5) g/dL Globulin (2.1-4.2) g/dL Albumin/Globulin Ratio (1.0-2.2) Urine Creatinine mg/dL Ur Total Protein Timed mg/dL Protein/Creatinin Ratio (<=0.2) Assessment/Plan - Problem List (1) Preeclampsia Impression: Protenuria is resolving. Blood pressure well controled with labatolol hyperreflexia. continue with magnesium Sulphate for at least 24 hours (2) (spontaneous vaginal delivery) Impression: minimnal locia.
[2019-08-01] MEDS ORDERED: MAGNESIUM SULFATE IN WATER 20 GM/500 ML IV.SOLN IV SCH (16:00)
[2019-08-02 05:40] LABS: BASOPHILS # (AUTO) 0.1 10^3/uL (0.0-0.1); BASOPHILS % (AUTO) 0.5 %; EOSINOPHILS # (AUTO) 0.1 10^3/uL (0.0-0.7); EOSINOPHILS % (AUTO) 1.2 %; HGB - HEMOGLOBIN 9.4 g/dL (12.0-16.0); LYMPHOCYTES # (AUTO) 2.3 10^3/uL (1.5-3.5); LYMPHOCYTES % (AUTO) 19.7 %; MEAN CORPUSCULAR HEMOGLOBIN 29.9 pg (27.0-31.0); MEAN CORPUSCULAR HGB CONC 32.9 g/dL (32.0-36.0); MEAN CORPUSCULAR VOLUME 91.1 fL (81.0-99.0); MEAN PLATELET VOLUME 10.8 fL (7.9-10.8); MONOCYTES # (AUTO) 0.7 10^3/uL (0.0-1.0); MONOCYTES % (AUTO) 6.1 %; NEUTROPHILS # (AUTO) 8.3 10^3/uL (1.5-6.6); NEUTROPHILS % (AUTO) 71.8 %; PLT - PLATELET COUNT 214 10^3/uL (130-450); RED BLOOD COUNT 3.14 10^6/uL (4.20-5.40); RED CELL DISTRIBUTION WIDTH 14.7 % (12.0-15.0); WHITE BLOOD COUNT 11.5 x10^3/uL (4.8-10.8)
[2019-08-02 05:51] LABS: ALBUMIN 1.9 g/dL (3.2-5.5); ALBUMIN/GLOBULIN RATIO 0.7 (1.0-2.2); BILIRUBIN,TOTAL 0.3 mg/dL (0.2-1.0); CALCIUM 7.1 mg/dL (8.5-10.3); CREATININE 1.1 mg/dL (0.4-1.0); TOTAL PROTEIN 4.6 g/dL (6.7-8.2)
[2019-08-02] MEDS: IBUPROFEN 600 MG TABLET PO SCH ×2 (06:32→22:11)
[2019-08-02] MEDS: LABETALOL 100 MG TABLET PO SCH ×3 (06:32→22:11)
[2019-08-02] MEDS: LEVOTHYROXINE 100 MCG TABLET PO SCH (06:36)
--- NOTE | 2019-08-02 07:19 | PROVIDER PROGRESS NOTE ---
Subjective - Prog Note Date Prog Note Date: 08/02/19 Prog Note Time: 07:16 - Subjective Pt reports feeling: Improved (Pain /. breast feeding, ambulating in room. evelin SCHROEDER/visual changes. swelling improving) Objective - Vital Signs/Intake & Output Reviewed Vital Signs: Yes Vital Signs: Vital Signs x48h Temp Pulse Resp BP Pulse Ox 08/02/19 04:25 36.7 C 82 18 141/95 H 96 08/01/19 23:36 37.2 C 86 18 138/86 H 98 Intake & Output: Intake & Output 07/30/19 07/31/19 08/01/19 08/02/19 23:59 23:59 23:59 23:59 Intake Total 1675 1325 Output Total 1195 1725 200 Balance 480 -400 -200 - Objective General Appearance: positive: No acute distress, Alert Respiratory: positive: Chest non-tender, No respiratory distress, Breath sounds nml Cardiovascular: positive: Regular rate & rhythm, No murmur, No gallop Abdomen: positive: Non-tender, Mass (U-3) Back: negative: CVA tenderness (R), CVA tenderness (L) Skin: positive: Color nml, No rash Extremities: negative: Calf tenderness, Alexandria's sign/cords Reflexes: Knee (R): 4+ (no clonus), Knee (L): 4+ - Lab Results Fish Bones: 08/02/19 05:22 08/02/19 05:22 Other Labs: Lab Results x24hrs 08/02/19 08/02/19 08/02/19 Range/Units 05:22 05:22 05:22 WBC 11.5 H (4.8-10.8) x10^3/uL RBC 3.14 L (4.20-5.40) 10^6/uL Hgb 9.4 L (12.0-16.0) g/dL Hct 28.6 L (37.0-47.0) % MCV 91.1 (81.0-99.0) fL MCH 29.9 (27.0-31.0) pg MCHC 32.9 (32.0-36.0) g/dL RDW 14.7 (12.0-15.0) % Plt Count 214 (130-450) 10^3/uL MPV 10.8 (7.9-10.8) fL Neut # (Auto) 8.3 H (1.5-6.6) 10^3/uL Lymph # (Auto) 2.3 (1.5-3.5) 10^3/uL [place] # (Auto) 0.7 (0.0-1.0) 10^3/uL Eos # (Auto) 0.1 (0.0-0.7) 10^3/uL Baso # (Auto) 0.1 (0.0-0.1) 10^3/uL Absolute Nucleated RBC 0.00 x10^3/uL Nucleated RBC % 0.0 /100WBC Sodium 137 (135-145) mmol/L Potassium 4.2 (3.5-5.0) mmol/L Chloride 108 (101-111) mmol/L Carbon Dioxide 23 (21-32) mmol/L Anion Gap 6.0 (6-13) BUN 17 (6-20) mg/dL Creatinine 1.1 H (0.4-1.0) mg/dL Estimated GFR (MDRD) 62 L (>89) Glucose 94 (70-100) mg/dL Uric Acid 7.8 H (2.6-7.2) mg/dL Calcium 7.1 L (8.5-10.3) mg/dL Total Bilirubin 0.3 (0.2-1.0) mg/dL AST 23 (10-42) IU/L ALT 12 (10-60) IU/L Alkaline Phosphatase 131 H (42-121) IU/L Total Protein 4.6 L (6.7-8.2) g/dL Albumin 1.9 L (3.2-5.5) g/dL Globulin 2.7 (2.1-4.2) g/dL Albumin/Globulin Ratio 0.7 L (1.0-2.2) Urine Creatinine mg/dL Ur Total Protein Timed mg/dL Protein/Creatinin Ratio (<=0.2) 08/01/19 Range/Units 09:00 WBC (4.8-10.8) x10^3/uL RBC (4.20-5.40) 10^6/uL Hgb (12.0-16.0) g/dL Hct (37.0-47.0) % MCV (81.0-99.0) fL MCH (27.0-31.0) pg MCHC (32.0-36.0) g/dL RDW (12.0-15.0) % Plt Count (130-450) 10^3/uL MPV (7.9-10.8) fL Neut # (Auto) (1.5-6.6) 10^3/uL Lymph # (Auto) (1.5-3.5) 10^3/uL [place] # (Auto) (0.0-1.0) 10^3/uL Eos # (Auto) (0.0-0.7) 10^3/uL Baso # (Auto) (0.0-0.1) 10^3/uL Absolute Nucleated RBC x10^3/uL Nucleated RBC % /100WBC Sodium (135-145) mmol/L Potassium (3.5-5.0) mmol/L Chloride (101-111) mmol/L Carbon Dioxide (21-32) mmol/L Anion Gap (6-13) BUN (6-20) mg/dL Creatinine (0.4-1.0) mg/dL Estimated GFR (MDRD) (>89) Glucose (70-100) mg/dL Uric Acid (2.6-7.2) mg/dL Calcium (8.5-10.3) mg/dL Total Bilirubin (0.2-1.0) mg/dL AST (10-42) IU/L ALT (10-60) IU/L Alkaline Phosphatase (42-121) IU/L Total Protein (6.7-8.2) g/dL Albumin (3.2-5.5) g/dL Globulin (2.1-4.2) g/dL Albumin/Globulin Ratio (1.0-2.2) Urine Creatinine 49.3 mg/dL Ur Total Protein Timed 94 mg/dL Protein/Creatinin Ratio 1.9 H (<=0.2) Assessment/Plan - Problem List (1) Preeclampsia Impression: Blood pressure adequately controlled with labetalol 100 3 times daily.Her platelets have remained stable however her creatinine has bumped to 1.1. Her urine protein creatinine ratio is currently pending at this time. Patient is anxious to go home. (2) (spontaneous vaginal delivery) Impression: Patient recovering quite well from her delivery. She is currently breast- feeding.
[2019-08-02 07:37] LABS: CREATININE,URINE 246.1 mg/dL; PROTEIN/CREATININE RATIO,URINE 1.7 (<=0.2)
[2019-08-02] MEDS: ACETAMINOPHEN 325 MG TABLET PO PRN ×3 (09:18→22:10)
[2019-08-02] MEDS: DOCUSATE SODIUM 100 MG CAPSULE PO SCH ×2 (09:18→22:11)
[2019-08-02] MEDS: SODIUM CHLORIDE FLUSH 0.9% 10 ML SYRINGE IVP SCH (17:17)
[2019-08-02] MEDS: SIMETHICONE CHEW 80 MG TABLET PO SCH (22:10)
[2019-08-03] MEDS ORDERED: LABETALOL 100 MG TABLET PO SCH ×5 (05:45→22:30)
[2019-08-03] MEDS: SIMETHICONE CHEW 80 MG TABLET PO SCH (05:56)
[2019-08-03] MEDS: LEVOTHYROXINE 100 MCG TABLET PO SCH (05:56)
[2019-08-03] MEDS: SODIUM CHLORIDE FLUSH 0.9% 10 ML SYRINGE IVP SCH (05:56)
--- NOTE | 2019-08-03 08:57 | PROVIDER PROGRESS NOTE ---
Subjective - Prog Note Date Prog Note Date: 08/03/19 Prog Note Time: 08:53 - Subjective Pt reports feeling: No change (Pt continues to do well. Tim SCHROEDER or visual changes. Pt notes that her reflexes were brisk at her first exam.) Objective - Vital Signs/Intake & Output Reviewed Vital Signs: Yes Vital Signs: Vital Signs x48h Temp Pulse Resp BP 08/03/19 07:30 37.1 C 76 20 146/98 H 08/03/19 04:46 37.0 C 76 16 158/100 H 08/03/19 02:00 130/92 H Intake & Output: Intake & Output 07/31/19 08/01/19 08/02/19 08/03/19 23:59 23:59 23:59 23:59 Intake Total 1675 1325 Output Total 1195 1725 200 Balance 480 -400 -200 - Objective Extremities: negative: Calf tenderness, Alexandria's sign/cords Neurologic/Psychiatric: positive: Oriented x3 Reflexes: Knee (R): 4+, Knee (L): 4+ (no clonus) - Lab Results Fish Bones: 08/02/19 05:22 08/02/19 05:22 Assessment/Plan - Problem List (1) Preeclampsia Impression: Pt increased ot 200 tid labetalol.
[2019-08-03] MEDS: DOCUSATE SODIUM 100 MG CAPSULE PO SCH (09:13)
[2019-08-03] MEDS: ACETAMINOPHEN 325 MG TABLET PO PRN ×3 (09:14→22:32)
[2019-08-03 14:25] LABS: CREATININE,URINE 100.2 mg/dL; PROTEIN/CREATININE RATIO,URINE 4.2 (<=0.2)
[2019-08-03] MEDS: LABETALOL 5 MG/1 ML 20 ML MDV IVP ONE ×2 (16:04→22:30)
[2019-08-03 20:28] LABS: CREATININE,URINE 38.2 mg/dL; PROTEIN/CREATININE RATIO,URINE 3.7 (<=0.2)
--- NOTE | 2019-08-03 21:18 | PROVIDER PROGRESS NOTE ---
Subjective - Prog Note Date Prog Note Date: 08/03/19 Prog Note Time: 21:15 - Subjective Pt reports feeling: No change (Ptfeels well. No SCHROEDER or visual changes wants to go home.) Objective - Vital Signs/Intake & Output Reviewed Vital Signs: Yes Vital Signs: Vital Signs x48h Pulse Resp BP 08/03/19 20:54 160/100 H 08/03/19 17:18 134/90 H 08/03/19 16:32 164/96 H 08/03/19 16:20 166/104 H 08/03/19 16:15 160/92 H 08/03/19 16:11 66 16 166/98 H 08/03/19 15:17 168/118 H 08/03/19 15:15 72 18 160/112 H Intake & Output: Intake & Output 07/31/19 08/01/19 08/02/19 08/03/19 23:59 23:59 23:59 23:59 Intake Total 1675 1325 Output Total 1195 1725 200 Balance 480 -400 -200 - Lab Results Fish Bones: 08/02/19 05:22 08/02/19 05:22 Other Labs: Lab Results x24hrs 08/03/19 08/03/19 Range/Units 19:50 13:45 Urine Creatinine 38.2 100.2 mg/dL Ur Total Protein Timed 141 421 mg/dL Protein/Creatinin Ratio 3.7 H 4.2 H (<=0.2) Assessment/Plan - Problem List (1) Preeclampsia Impression: bP increasing. Push Labetolol 300 TID will add IV as nessary.
[2019-08-03] MEDS ORDERED: LABETALOL 5 MG/1 ML 20 ML MDV IVP ONE (22:14)
[2019-08-03] MEDS: IBUPROFEN 600 MG TABLET PO SCH (22:32)
[2019-08-04] MEDS ORDERED: LABETALOL 100 MG TABLET PO ONE (02:00)
[2019-08-04] MEDS ORDERED: LABETALOL 5 MG/1 ML 20 ML MDV IVP ONE ×2 (02:00→05:46)
[2019-08-04] MEDS: SODIUM CHLORIDE FLUSH 0.9% 10 ML SYRINGE IVP PRN (02:24)
[2019-08-04] MEDS: ACETAMINOPHEN 325 MG TABLET PO PRN ×3 (02:44→10:57)
[2019-08-04] MEDS: IBUPROFEN 600 MG TABLET PO SCH (04:28)
[2019-08-04 05:03] LABS: BASOPHILS # (AUTO) 0.1 10^3/uL (0.0-0.1); BASOPHILS % (AUTO) 0.6 %; EOSINOPHILS # (AUTO) 0.3 10^3/uL (0.0-0.7); EOSINOPHILS % (AUTO) 3.6 %; HGB - HEMOGLOBIN 8.8 g/dL (12.0-16.0); LYMPHOCYTES # (AUTO) 2.1 10^3/uL (1.5-3.5); MEAN CORPUSCULAR HEMOGLOBIN 29.8 pg (27.0-31.0); MEAN CORPUSCULAR HGB CONC 32.2 g/dL (32.0-36.0); MEAN CORPUSCULAR VOLUME 92.5 fL (81.0-99.0); MEAN PLATELET VOLUME 9.8 fL (7.9-10.8); MONOCYTES # (AUTO) 0.6 10^3/uL (0.0-1.0); MONOCYTES % (AUTO) 6.2 %; NEUTROPHILS # (AUTO) 6.4 10^3/uL (1.5-6.6); NEUTROPHILS % (AUTO) 67.2 %; PLT - PLATELET COUNT 241 10^3/uL (130-450); RED BLOOD COUNT 2.95 10^6/uL (4.20-5.40); RED CELL DISTRIBUTION WIDTH 14.3 % (12.0-15.0); WHITE BLOOD COUNT 9.6 x10^3/uL (4.8-10.8)
[2019-08-04 05:15] LABS: ALBUMIN/GLOBULIN RATIO 0.7 (1.0-2.2); BILIRUBIN,TOTAL 0.5 mg/dL (0.2-1.0); CREATININE 0.7 mg/dL (0.4-1.0); URIC ACID 5.8 mg/dL (2.6-7.2)
[2019-08-04] MEDS ORDERED: LABETALOL 100 MG TABLET PO SCH ×2 (06:00)
[2019-08-04 06:07] LABS: CREATININE,URINE 170.5 mg/dL; PROTEIN/CREATININE RATIO,URINE 3.7 (<=0.2)
[2019-08-04] MEDS: LABETALOL 100 MG TABLET PO SCH ×3 (06:11→21:31)
[2019-08-04] MEDS: LEVOTHYROXINE 100 MCG TABLET PO SCH (06:19)
[2019-08-04] MEDS: SIMETHICONE CHEW 80 MG TABLET PO SCH ×11 (06:20→21:44)
[2019-08-04] MEDS: DOCUSATE SODIUM 100 MG CAPSULE PO SCH ×5 (09:01→21:44)
[2019-08-04] MEDS: SODIUM CHLORIDE FLUSH 0.9% 10 ML SYRINGE IVP SCH ×12 (09:02→23:32)
--- NOTE | 2019-08-04 11:34 | PROVIDER PROGRESS NOTE ---
Subjective - Prog Note Date Prog Note Date: 08/04/19 Prog Note Time: 11:32 - Subjective Pt reports feeling: No change (breast milk in. evelin SCHROEDER) Objective - Vital Signs/Intake & Output Reviewed Vital Signs: Yes Vital Signs: Vital Signs x48h Temp Pulse Pulse Resp BP BP Pulse Ox 08/04/19 09:40 36.5 C 82 16 134/83 H 98 08/04/19 07:50 87 08/04/19 07:40 138/80 H 08/04/19 06:40 142/90 H 140/100 H 08/04/19 05:40 180/110 H Intake & Output: Intake & Output 08/01/19 08/02/19 08/03/19 08/04/19 23:59 23:59 23:59 23:59 Intake Total 1325 500 Output Total 1725 200 400 840 Balance -400 -200 -400 -340 - Objective Neurologic/Psychiatric: positive: Oriented x3 Reflexes: Knee (R): 4+, Knee (L): 4+ - Lab Results Fish Bones: 08/04/19 04:55 08/04/19 04:55 Other Labs: Lab Results x24hrs 08/04/19 08/04/19 08/04/19 Range/Units 05:30 04:55 04:55 WBC 9.6 (4.8-10.8) x10^3/uL RBC 2.95 L (4.20-5.40) 10^6/uL Hgb 8.8 L (12.0-16.0) g/dL Hct 27.3 L (37.0-47.0) % MCV 92.5 (81.0-99.0) fL MCH 29.8 (27.0-31.0) pg MCHC 32.2 (32.0-36.0) g/dL RDW 14.3 (12.0-15.0) % Plt Count 241 (130-450) 10^3/uL MPV 9.8 (7.9-10.8) fL Neut # (Auto) 6.4 (1.5-6.6) 10^3/uL Lymph # (Auto) 2.1 (1.5-3.5) 10^3/uL [place] # (Auto) 0.6 (0.0-1.0) 10^3/uL Eos # (Auto) 0.3 (0.0-0.7) 10^3/uL Baso # (Auto) 0.1 (0.0-0.1) 10^3/uL Absolute Nucleated RBC 0.00 x10^3/uL Nucleated RBC % 0.0 /100WBC Sodium 138 (135-145) mmol/L Potassium 4.3 (3.5-5.0) mmol/L Chloride 106 (101-111) mmol/L Carbon Dioxide 25 (21-32) mmol/L Anion Gap 7.0 (6-13) BUN 15 (6-20) mg/dL Creatinine 0.7 (0.4-1.0) mg/dL Estimated GFR (MDRD) 104 (>89) Glucose 77 (70-100) mg/dL Uric Acid 5.8 (2.6-7.2) mg/dL Calcium 8.0 L (8.5-10.3) mg/dL Total Bilirubin 0.5 (0.2-1.0) mg/dL AST 31 (10-42) IU/L ALT 20 (10-60) IU/L Alkaline Phosphatase 118 (42-121) IU/L Total Protein 5.0 L (6.7-8.2) g/dL Albumin 2.0 L (3.2-5.5) g/dL Globulin 3.0 (2.1-4.2) g/dL Albumin/Globulin Ratio 0.7 L (1.0-2.2) Urine Creatinine 170.5 mg/dL Ur Total Protein Timed 632 mg/dL Protein/Creatinin Ratio 3.7 H (<=0.2) 08/03/19 08/03/19 Range/Units 19:50 13:45 WBC (4.8-10.8) x10^3/uL RBC (4.20-5.40) 10^6/uL Hgb (12.0-16.0) g/dL Hct (37.0-47.0) % MCV (81.0-99.0) fL MCH (27.0-31.0) pg MCHC (32.0-36.0) g/dL RDW (12.0-15.0) % Plt Count (130-450) 10^3/uL MPV (7.9-10.8) fL Neut # (Auto) (1.5-6.6) 10^3/uL Lymph # (Auto) (1.5-3.5) 10^3/uL [place] # (Auto) (0.0-1.0) 10^3/uL Eos # (Auto) (0.0-0.7) 10^3/uL Baso # (Auto) (0.0-0.1) 10^3/uL Absolute Nucleated RBC x10^3/uL Nucleated RBC % /100WBC Sodium (135-145) mmol/L Potassium (3.5-5.0) mmol/L Chloride (101-111) mmol/L Carbon Dioxide (21-32) mmol/L Anion Gap (6-13) BUN (6-20) mg/dL Creatinine (0.4-1.0) mg/dL Estimated GFR (MDRD) (>89) Glucose (70-100) mg/dL Uric Acid (2.6-7.2) mg/dL Calcium (8.5-10.3) mg/dL Total Bilirubin (0.2-1.0) mg/dL AST (10-42) IU/L ALT (10-60) IU/L Alkaline Phosphatase (42-121) IU/L Total Protein (6.7-8.2) g/dL Albumin (3.2-5.5) g/dL Globulin (2.1-4.2) g/dL Albumin/Globulin Ratio (1.0-2.2) Urine Creatinine 38.2 100.2 mg/dL Ur Total Protein Timed 141 421 mg/dL Protein/Creatinin Ratio 3.7 H 4.2 H (<=0.2) Assessment/Plan - Problem List (1) Preeclampsia Impression: Pt is on 600 lasbetalol control improving
[2019-08-04] MEDS ORDERED: NIFEdipine ER 30 MG TABLET PO SCH (16:30)
[2019-08-04] MEDS ORDERED: SODIUM CHLORIDE FLUSH 0.9% 10 ML SYRINGE IVP PRN (17:06)
[2019-08-04] MEDS ORDERED: ONDANSETRON 4 MG/2 ML VIAL IVP PRN (17:06)
[2019-08-04] MEDS ORDERED: MAGNESIUM SULFATE 2 GRAM 4 GM/100 ML BAG IV ONE (17:08)
[2019-08-04] MEDS ORDERED: MAGNESIUM SULFATE IN WATER 20 GM/500 ML IV.SOLN IV ONE (17:08)
[2019-08-04] MEDS ORDERED: hydrALAZINE INJ 20 MG/ML VIAL ONE (17:08)
[2019-08-04] MEDS ORDERED: LACTATED RINGERS 1,000 ML IV ONE (17:08)
[2019-08-04] MEDS: MAGNESIUM SULFATE 2 GRAM 2 GM/50 ML BAG IV SCH ×2 (17:12→17:30)
[2019-08-04] MEDS ORDERED: hydrALAZINE INJ 20 MG/ML VIAL IVP ONE (17:14)
--- NOTE | 2019-08-04 17:21 | PROVIDER PROGRESS NOTE ---
Subjective - Prog Note Date Prog Note Date: 08/04/19 Prog Note Time: 17:14 - Subjective Pt reports feeling: Worse (Called to see pt for central Chest pain. Onset Sudden and nonradiating at 1645. Pt Blood pressure had controlled with 600 mg labetolol. this afternoon noted to have an increase in pressure so was given 30 Mg Procardia.) Objective - Vital Signs/Intake & Output Reviewed Vital Signs: Yes Vital Signs: Vital Signs x48h Temp Pulse Resp BP BP Pulse Ox 08/04/19 17:08 173/121 H 08/04/19 17:02 183/117 H 08/04/19 16:56 185/115 H 08/04/19 16:55 177/109 H 08/04/19 16:30 168/108 H 08/04/19 16:02 73 178/110 H 176/108 H 08/04/19 13:45 78 138/98 H 99 08/04/19 12:31 146/96 H 08/04/19 12:30 81 141/90 H 08/04/19 11:31 157/108 H 08/04/19 11:30 72 179/119 H 08/04/19 09:40 36.5 C 82 16 134/83 H 98 Intake & Output: Intake & Output 08/01/19 08/02/19 08/03/19 08/04/19 23:59 23:59 23:59 23:59 Intake Total 2709 1000 500 Output Total 1725 200 400 840 Balance 984 -200 600 -340 - Objective General Appearance: positive: Alert, Mild distress Respiratory: positive: Chest non-tender, No respiratory distress, Breath sounds nml Cardiovascular: positive: Regular rate & rhythm, No murmur, No gallop Extremities: negative: Calf tenderness, Alexandria's sign/cords Reflexes: Knee (R): 4+, Knee (L): 4+ - Lab Results Fish Bones: 08/04/19 04:55 08/04/19 04:55 Other Labs: Lab Results x24hrs 08/04/19 08/04/19 08/04/19 Range/Units 05:30 04:55 04:55 WBC 9.6 (4.8-10.8) x10^3/uL RBC 2.95 L (4.20-5.40) 10^6/uL Hgb 8.8 L (12.0-16.0) g/dL Hct 27.3 L (37.0-47.0) % MCV 92.5 (81.0-99.0) fL MCH 29.8 (27.0-31.0) pg MCHC 32.2 (32.0-36.0) g/dL RDW 14.3 (12.0-15.0) % Plt Count 241 (130-450) 10^3/uL MPV 9.8 (7.9-10.8) fL Neut # (Auto) 6.4 (1.5-6.6) 10^3/uL Lymph # (Auto) 2.1 (1.5-3.5) 10^3/uL [place] # (Auto) 0.6 (0.0-1.0) 10^3/uL Eos # (Auto) 0.3 (0.0-0.7) 10^3/uL Baso # (Auto) 0.1 (0.0-0.1) 10^3/uL Absolute Nucleated RBC 0.00 x10^3/uL Nucleated RBC % 0.0 /100WBC Sodium 138 (135-145) mmol/L Potassium 4.3 (3.5-5.0) mmol/L Chloride 106 (101-111) mmol/L Carbon Dioxide 25 (21-32) mmol/L Anion Gap 7.0 (6-13) BUN 15 (6-20) mg/dL Creatinine 0.7 (0.4-1.0) mg/dL Estimated GFR (MDRD) 104 (>89) Glucose 77 (70-100) mg/dL Uric Acid 5.8 (2.6-7.2) mg/dL Calcium 8.0 L (8.5-10.3) mg/dL Total Bilirubin 0.5 (0.2-1.0) mg/dL AST 31 (10-42) IU/L ALT 20 (10-60) IU/L Alkaline Phosphatase 118 (42-121) IU/L Total Protein 5.0 L (6.7-8.2) g/dL Albumin 2.0 L (3.2-5.5) g/dL Globulin 3.0 (2.1-4.2) g/dL Albumin/Globulin Ratio 0.7 L (1.0-2.2) Urine Creatinine 170.5 mg/dL Ur Total Protein Timed 632 mg/dL Protein/Creatinin Ratio 3.7 H (<=0.2) 08/03/19 Range/Units 19:50 WBC (4.8-10.8) x10^3/uL RBC (4.20-5.40) 10^6/uL Hgb (12.0-16.0) g/dL Hct (37.0-47.0) % MCV (81.0-99.0) fL MCH (27.0-31.0) pg MCHC (32.0-36.0) g/dL RDW (12.0-15.0) % Plt Count (130-450) 10^3/uL MPV (7.9-10.8) fL Neut # (Auto) (1.5-6.6) 10^3/uL Lymph # (Auto) (1.5-3.5) 10^3/uL Bailey # (Auto) (0.0-1.0) 10^3/uL Eos # (Auto) (0.0-0.7) 10^3/uL Baso # (Auto) (0.0-0.1) 10^3/uL Absolute Nucleated RBC x10^3/uL Nucleated RBC % /100WBC Sodium (135-145) mmol/L Potassium (3.5-5.0) mmol/L Chloride (101-111) mmol/L Carbon Dioxide (21-32) mmol/L Anion Gap (6-13) BUN (6-20) mg/dL Creatinine (0.4-1.0) mg/dL Estimated GFR (MDRD) (>89) Glucose (70-100) mg/dL Uric Acid (2.6-7.2) mg/dL Calcium (8.5-10.3) mg/dL Total Bilirubin (0.2-1.0) mg/dL AST (10-42) IU/L ALT (10-60) IU/L Alkaline Phosphatase (42-121) IU/L Total Protein (6.7-8.2) g/dL Albumin (3.2-5.5) g/dL Globulin (2.1-4.2) g/dL Albumin/Globulin Ratio (1.0-2.2) Urine Creatinine 38.2 mg/dL Ur Total Protein Timed 141 mg/dL Protein/Creatinin Ratio 3.7 H (<=0.2) Assessment/Plan - Problem List (1) Preeclampsia Impression: blood pressure continues to vassilate. Not controlled with labetolol procardia. EKG, O2, Dr Black, Cards consulted.
[2019-08-04] MEDS ORDERED: FUROSEMIDE 20 MG/2 ML VIAL IVP STA (17:24)
[2019-08-04] MEDS: MORPHINE 2 MG/ML CARPUJECT IVP PRN ×2 (17:45→20:40)
[2019-08-04] MEDS: MAGNESIUM SULFATE IN WATER 20 GM/500 ML IV.SOLN IV SCH (17:52)
[2019-08-04 18:10] LABS: BILIRUBIN,URINE NEGATIVE (NEGATIVE); GLUCOSE, URINE (UA) NEGATIVE (NEGATIVE); KETONES,URINE (UA) NEGATIVE (NEGATIVE); LEUKOCYTE ESTERASE, URINE NEGATIVE (NEGATIVE); NITRITE,URINE NEGATIVE (NEGATIVE); OCCULT BLOOD,URINE NEGATIVE (NEGATIVE); PH,URINE 7.5 PH (5.0-7.5); PROTEIN,URINE 100 mg/dL (NEGATIVE); UROBILINOGEN,URINE 0.2 (NORMAL) E.U./dL (NORMAL)
[2019-08-04 18:11] LABS: CLARITY,URINE CLEAR (CLEAR)
[2019-08-04 18:26] LABS: BACTERIA,URINE None Seen /HPF (None Seen); CASTS, URINE 0-2 Hyaline Casts /LPF; EPITHELIAL CELLS,UR FEW Transitional /HPF (<= Few); RBC,URINE None Seen /HPF (0-5); SQUAMOUS EPITHELIAL CELL,UR FEW Squamous (<= Few)
--- NOTE | 2019-08-04 18:42 | XRAY Report ---
Reason: Chest pain, malignant HTN Procedure Date: 08/04/2019 Accession Number: [id number] / [id number] Procedure: XR - Chest 1 View X-Ray CPT Code: 96888 Final Report FULL RESULT: EXAM: CHEST RADIOGRAPHY EXAM DATE: 08/04/2019 05:37 PM. CLINICAL HISTORY: Chest pain, malignant HTN. COMPARISON: None. TECHNIQUE: 1 view. FINDINGS: Lungs/Pleura: No focal opacities evident. No pleural effusion. No pneumothorax. Mediastinum: Within exam limitations, the cardiomediastinal contour is normal. Mild pulmonary vascular congestion. Other: None. IMPRESSION: No focal consolidation. Mild pulmonary vascular congestion. [facility]
[2019-08-04] MEDS ORDERED: HEPARIN 25000UNITS/500ML (D5W) 25,000 UNIT/500 ML BAG IV SCH (19:00)
[2019-08-04] MEDS ORDERED: HYDROCORTISONE SUCCINATE 100 MG/2 ML VIAL IVP SCH (19:01)
[2019-08-04 19:21] LABS: HGB - HEMOGLOBIN 9.2 g/dL (12.0-16.0); MEAN CORPUSCULAR HEMOGLOBIN 29.3 pg (27.0-31.0); MEAN CORPUSCULAR HGB CONC 32.3 g/dL (32.0-36.0); MEAN CORPUSCULAR VOLUME 90.8 fL (81.0-99.0); RED BLOOD COUNT 3.14 10^6/uL (4.20-5.40); RED CELL DISTRIBUTION WIDTH 14.4 % (12.0-15.0); WHITE BLOOD COUNT 14.5 x10^3/uL (4.8-10.8)
[2019-08-04] MEDS: FAMOTIDINE 20 MG TABLET PO SCH (21:44)
[2019-08-04] MEDS: hydrALAZINE INJ 20 MG/ML VIAL IVP SCH (22:16)
[2019-08-04] MEDS ORDERED: HYDROCORTISONE SUCCINATE 100 MG/2 ML VIAL IVP ONE (23:00)
[2019-08-04] MEDS ORDERED: diphenhydrAMINE INJ 50 MG/ML VIAL IVP ONE (23:00)
[2019-08-05] MEDS ORDERED: SODIUM CHLORIDE 0.9% 500 ML IV PRN ×2 (00:27→03:20)
[2019-08-05] MEDS ORDERED: IOVERSOL 320 100 ML VIAL IVP ONE ×2 (01:07→01:57)
--- NOTE | 2019-08-05 02:57 | CT Report ---
Reason: Pleuritic chest pain Procedure Date: 08/05/2019 Accession Number: [id number] / [id number] Procedure: CT - ANGIO CHEST W/WO CPT Code: Final Report FULL RESULT: EXAM: CT ANGIOGRAM CHEST EXAM DATE: 08/05/2019 01:59 AM CLINICAL HISTORY: Pleuritic chest pain. COMPARISON: CHEST 1 VIEW 08/04/2019 5:17 PM. TECHNIQUE: Routine helical imaging was performed through the chest in the pulmonary arterial phase. IV Contrast: 80 mL Optiray 320. Reconstructions: Coronal 3D MIP reconstructions. Sagittal and coronal. In accordance with CT protocol optimization, one or more of the following dose reduction techniques were utilized for this exam: automated exposure control, adjustment of mA and/or KV based on patient size, or use of iterative reconstructive technique. FINDINGS: Pulmonary Arteries: Diagnostic Quality: Suboptimal through the segmental arteries. No evidence for acute or chronic pulmonary emboli in the main pulmonary arteries and the proximal segmental branches. Evaluation of the more distal segmental and subsegmental branches is not possible on this exam. RV/LV is within normal limits. There is no interventricular septal bowing. There is no reflux of contrast material in the IVC. Lungs/Pleura: Small to moderate bilateral pleural effusions associated with compressive atelectasis. No pneumothorax. Several small scattered patchy opacities in the right upper lobe likely of infectious or inflammatory etiology. Mediastinum: Heart size within normal limits. No pericardial effusions. No mediastinal or hilar lymphadenopathy. Thoracic Aorta: Grossly unremarkable. Upper Abdomen: Unremarkable. Osseous Structures: No significant focal osseous lesions. Other: Dense breast tissue bilaterally. IMPRESSION: 1. Suboptimal opacification of the pulmonary arteries. No evidence of pulmonary embolism in the main pulmonary arteries or the proximal segmental branches. Evaluation of the more distal segmental and subsegmental branches is not possible on this exam. 2. Small to moderate bilateral pleural effusions associated with compressive atelectasis. 3. Several small scattered patchy opacities in the right upper lobe likely of infectious or inflammatory etiology. [facility]
[2019-08-05] MEDS: PIPERACILLIN/TAZOBACTAM 3.375 GM in SODIUM CHLORIDE 0.9% MINIBAG 100 ML IV SCH ×4 (03:31→23:35)
[2019-08-05] MEDS: hydrALAZINE INJ 20 MG/ML VIAL IVP SCH (04:11)
[2019-08-05] MEDS: VANCOMYCIN INJ 1 GM in SODIUM CHLORIDE 0.9% 250 ML IV SCH ×2 (04:11→16:54)
[2019-08-05] MEDS: LABETALOL 100 MG TABLET PO SCH (04:11)
[2019-08-05] MEDS: MAGNESIUM SULFATE IN WATER 20 GM/500 ML IV.SOLN IV SCH ×2 (05:08→15:47)
[2019-08-05 05:10] LABS: BASOPHILS % (AUTO) 0.2 %; EOSINOPHILS % (AUTO) 0.1 %; LYMPHOCYTES # (AUTO) 0.6 10^3/uL (1.5-3.5); LYMPHOCYTES % (AUTO) 5.1 %; MEAN CORPUSCULAR HGB CONC 31.9 g/dL (32.0-36.0); MONOCYTES # (AUTO) 0.1 10^3/uL (0.0-1.0); MONOCYTES % (AUTO) 0.8 %; NEUTROPHILS # (AUTO) 11.2 10^3/uL (1.5-6.6); PLT - PLATELET COUNT 310 10^3/uL (130-450); RED CELL DISTRIBUTION WIDTH 14.6 % (12.0-15.0); WHITE BLOOD COUNT 12.1 x10^3/uL (4.8-10.8)
[2019-08-05 05:21] LABS: ALBUMIN/GLOBULIN RATIO 0.7 (1.0-2.2); BILIRUBIN,TOTAL 0.6 mg/dL (0.2-1.0); CALCIUM 7.2 mg/dL (8.5-10.3); CREATININE 0.9 mg/dL (0.4-1.0); MAGNESIUM 5.9 mg/dL (1.7-2.8)
--- NOTE | 2019-08-05 05:38 | Labor Flowsheet ---
Labor Flowsheet Datetime Report Generated by CPN: 08/05/2019 05:38 Datetime: 08/01/2019 15:27 VITAL SIGNS NBP Sys/Renetta/Mean (mmHg): 146 : 96 : 106 Pulse: 79 LaborFlag: Labor Datetime: 08/01/2019 02:54 SpO2 (%): 99 Datetime: 07/31/2019 18:56 Membranes Ruptured Date/Time: 07/31/2019 04:30 Membranes Rupture Method: Spontaneous Amniotic Fluid Color: Clear Amniotic Fluid Amount: Moderate Amniotic Fluid Odor: Normal Datetime: 07/31/2019 16:09 COMMUNICATION Communication: Provider at Bedside Communication Comments: Dr. Giem and Dr. Avelar at bedside Datetime: 07/31/2019 15:59 Pushing Position: Pushing Lithotomy Pushing Progress: Descent with Pushing Datetime: 07/31/2019 15:53 Patient Care Comments: Emesis 200mL Datetime: 07/31/2019 15:50 Stage 2 Comments: Closed knee pushing Datetime: 07/31/2019 15:18 STAGE 2 Pushing: Coached on Pushing; Urge to Push Datetime: 07/31/2019 15:15 VAGINAL EXAM Dilatation (cm): 10.0 Effacement (%): 100 Station: 2 Exam by: Dr. Giem Datetime: 07/31/2019 15:13 Provider Notified (Name): Dr.Avelar Datetime: 07/31/2019 15:00 Respirations: 18 Temperature (C): 36.9 PAIN Pain Scale: 4 Pain Presence: Intermittent Pain Type: Pressure Pain Location: Perineum Medication Comments: Labetalol 10mg IV x1 Anesthesia Level Check: T10- Umbilicus Datetime: 07/31/2019 14:30 MEDICATIONS Pitocin (milliunits): Increased to @ 5 Datetime: 07/31/2019 14:01 Monitor Interventions for FHR: Ultrasound Adjusted Datetime: 07/31/2019 13:00 I/O Interventions: Ma Cath Inserted Datetime: 07/31/2019 12:49 Antibiotics: Ampicillin IV 1 Gm Datetime: 07/31/2019 12:05 Monitor Interventions for UA: [place] Adjusted Datetime: 07/31/2019 11:06 Patient Position/Activity: Left Tilt Datetime: 07/31/2019 10:43 Magnesium/Antihypertensives: Magnesium Sulfate IV (Gm/hr) @ 2 Datetime: 07/31/2019 10:35 ANESTHESIA Epidural Procedure: Completed Epidural Procedure Other: Pump Started Datetime: 07/31/2019 10:30 Comments: Poor tracing at times due to maternal position during epidural placement Datetime: 07/31/2019 10:22 Anesthesia Comments: Negative test dose Datetime: 07/31/2019 10:09 PROCEDURE TIME OUT Procedure Verify: Correct Patient Identity; Correct Side and Site are Marked; Accurate Procedure Co nsent Form; Agreement on Procedure to be Done Datetime: 07/31/2019 10:00 UTERINE ACTIVITY Monitor Mode: External Frequency (min): 4-8 Quality: Strong Duration (sec): 70-80 Resting Tone (Palpate): Relaxed ASSESSMENT A Monitor Mode: Telemetry FHR Baseline Rate : 135 Variability: Moderate 6-25 bpm Accelerations: 10X10 Decelerations: None Category: Category I Oxygen Method: Room Air Datetime: 07/31/2019 09:43 Maternal Comments: Hyperactive reflexes with clonus; headache Datetime: 07/31/2019 09:31 Contraction Comments: Poor tracing of contractions; lots of artifact Datetime: 07/31/2019 08:30 Pattern: Normal: <= 5 Contractions in 10 Minutes Datetime: 07/31/2019 08:29 PATIENT CARE IV/Blood Work: New IV Bag Hung; IV Bag Number @ 1 Datetime: 07/31/2019 08:02 MATERNAL ASSESSMENT DTR's/Clonus: DTRs 3+; No Clonus Headache: Denies Breath Sounds, Left: Clear and Equal Breath Sounds, Right: Clear and Equal Nausea/Vomiting: Denies RUQ Epigastric Pain: Denies Datetime: 07/31/2019 07:57 Vaginal Bleeding: None Cervix, Consistency: Soft Cervix, Position: Midposition Datetime: 07/31/2019 07:29 Stage of : Labor
[2019-08-05] MEDS: LEVOTHYROXINE 100 MCG TABLET PO SCH (06:27)
[2019-08-05] MEDS: SIMETHICONE CHEW 80 MG TABLET PO SCH ×3 (06:27→23:34)
--- NOTE | 2019-08-05 08:26 | HISTORY & PHYSICAL EXAMINATION ---
DATE OF SERVICE: 08/04/2019 Physician: Isabel Cain MD HISTORY OF PRESENT ILLNESS: This is a 23-year-old female with a history of vitiligo noticeable around her lips and hands. She has just delivered a healthy baby girl vaginally 4 days ago. Patient developed preeclampsia and eclampsia documented by high protein in the urine 3 weeks ago, then hypertension. She required magnesium peripartum and in the setting due to hypertension and hyperreflexia. She has had leg edema. She has been managed in the labor and delivery guy here by the SOFTWARE CONTROLS ENGINEER doctor, using labetalol iv pushes for the hypertension and today started Procardia as well. There was improvement in her protein to creatinine ratio and blood pressure today. However, this afternoon, again blood pressure became uncontrolled at 185/118. Then she developed sudden onset of chest pain and the Hospitalist Internal Medicine team was called to manage her care. Patient describes to me sudden onset of central chest pain, which is pleuritic and because of it she is not taking deep breaths. She has never had this type of pain before. There is no radiation. There has been no fever or cough. Patient states she has no past cardiac history or pulmonary history. An EKG was done stat at the bedside, which shows a vertical QRS axis and LVH voltage. Patient is now being admitted to the ICU for management of her severe hypertension as well as new onset of chest pain. PAST MEDICAL HISTORY: Unremarkable in the remote past. She has had eclampsia peripartum. She has had a normal vaginal delivery 4 days ago of a healthy baby girl. She has been diagnosed with hypothyroidism and started on Synthroid during this hospital stay. She has been breast feeding the baby without any complications during this stay. ALLERGIES: IODINE. MEDICATIONS currently 1. Labetalol IV several doses. 2. Colace 100 mg b.i.d. 3. Tylenol p.r.n. 4. Levothyroxine 100 mcg daily, started 3 days ago. 5. Magnesium sulfate IV drip. 6. Zofran p.r.n. 7. Simethicone p.r.n., 8. Tucks pads p.r.n. 9. She was on miconazole vaginal suppository before this delivery. REVIEW OF SYSTEMS: A comprehensive review of systems was performed and the pertinent positives are listed, the rest are negative. FAMILY HISTORY: No significant cardiac or pulmonary history in the family. SOCIAL HISTORY: Patient lives with her who is in the [place]. This is their first child. Patient does not abuse alcohol, smokes no cigarettes and has no illicit drug use history. PHYSICAL EXAMINATION GENERAL: Young female of descent. She is in moderate distress. She describes her chest pain currently at 6 out of 10. VITAL SIGNS: Blood pressure 160/108, heart rate 70 in sinus rhythm (after iv Labetolol 600 mg today), afebrile, respiratory rate 21, room air saturation 98%. HEENT: Shows the vitiligo around the lips. Moist oral mucosa. NECK: No JVD in a 30-degree upright angle. CHEST: Clear at the anterior bases. No wheezing, rales or rhonchi. HEART: Sounds are normal, there is no accentuated P2 or murmur. There is no rub or gallop. ABDOMEN: Soft, nontender, mildly distended in the state. EXTREMITIES: Show 2+ edema to the knees. There is no clubbing or cyanosis. Hands have vitiligo patches. NEUROLOGIC: She has clonus noted of the right lower extremity. She has hyperreflexia of both lower extremities. She is alert and oriented x3, not obtunded. Motor exam is grossly normal. LABORATORY DATA: Normal electrolytes today. Yesterday, creatinine 1.1, today creatinine 0.7. Yesterday's GFR was estimated at 62, today 104. Her uric acid was high at 7.8 two days ago and today 5.8. Calcium is low at 8, but albumin is also low at 2.0, and previously was 1.8. Her TSH is very elevated at 26.3. White blood count is 9.6, hemoglobin 8.8 and admission hemoglobin was 12.2, platelet count normal at 241. INR is pending. Her STAT D-dimer is elevated at 611. Her urine during this stay has showed high protein to creatinine ratio as high as 4.2 and it was 3.7 today. Her urinalysis done STAT today shows a specific gravity of 1.020, high protein, negative ketones, negative nitrites, negative leukocyte esterase and there are a few hyaline casts noted. IMAGING: Chest x-ray by my reading: Heart size upper limits of normal, pulmonary vascular congestion and small bilateral pleural effusions. Also, a possible left lower lobe consolidation, read by Radiology. EKG: (I interpreted this independently) Normal sinus rhythm at a rate of 71, vertical axis, LVH voltage with deep inferior Q-waves, and no ST segment or T- wave abnormalities. There was no old EKG available for comparison. IMPRESSION/DIAGNOSIS 1. Pleuritic chest pain. 2. Elevated D-dimer. 3. Malignant hypertension. 4. Abnormal EKG. 5. Eclampsia. 6. Hypoalbuminemia. 7. Proteinuria. 8. care after vaginal delivery. 9. Anemia. 10. Hypothyroidism. 11. Vitiligo. PLAN: Admit/transfer patient to the ICU on telemetry. Continue with management of hypertension with frequent vital sign monitoring every hour. Continue with iv magnesium treatment as per obstetrics, which will help blood pressure and also start hydralazine IV for blood pressure management. Follow serum magnesium levels q.2 hours because of the magnesium drip, stopping the drip if the level exceeds 9. No further labetalol will be used since the beta beryl effect has already decreased the heart rate to the 70s. Cycle troponins. Obtain a BNP. Obtain an Echo stat to evaluate LV wall motion, PA pressure, and obtain a CT angio of the chest to rule out pulmonary embolism. Follow electrolytes daily. If patient has findings of pulmonary embolism, then anticoagulation will be started, this has been discussed with the hairspring adjuster, who is in agreement. Since she has an iodine allergy, she will need pre-medication with iv Hydrocortisone 5 hours and 1 hour before iv contrast is administered, plus iv Benadryl 1 hour prior. Because that will delay the work-up for a PE, start empiric iv Heparin drip for treating an acute PE. If a pulmonary embolism is found, DVT work-up with leg Dopplers will be ordered. Begin treatment for hospital-acquired pneumonia if it is confirmed by the CT chest. Stop iv Heparin if a PE is ruled out. Continue with her Synthroid treatment. Follow her CBC daily regarding both the white count and the low hemoglobin. Check iron and B12 and folate stores. Begin a diet that is a cardiac diet, low in sodium. Request OB consult regarding management of this post- patient for her toxemia of and how to handle breast milk pumping and dumping and feeding of the . CODE STATUS: FULL CODE. DEEP VENOUS THROMBOSIS PROPHYLAXIS: SCDs, but this might change to pharmacotherapy, depending on results of the CT chest. ATTESTATION: Patient is expected to be discharged or transferred to another facility within 96 hours: Yes. CRITICAL CARE TIME spent at PATIENT'S bedside, discussion with the hairspring adjuster, discussion with patient and regarding the various findings and the plan, monitoring the transfer from labor and delivery to the ICU, initiating medications and explaining the plan to staff: 90 minutes. TD: 08/04/2019 18:45 FATIMAH
[2019-08-05] MEDS: amLODIPine 5 MG TABLET PO SCH (08:49)
[2019-08-05] MEDS: DOCUSATE SODIUM 100 MG CAPSULE PO SCH ×2 (08:52→23:34)
[2019-08-05] MEDS: IBUPROFEN 600 MG TABLET PO SCH ×3 (08:52→16:58)
[2019-08-05] MEDS: FAMOTIDINE 20 MG TABLET PO SCH ×2 (08:53→23:34)
[2019-08-05] MEDS: SODIUM CHLORIDE FLUSH 0.9% 10 ML SYRINGE IVP SCH ×3 (08:53→17:05)
--- NOTE | 2019-08-05 09:20 | PROVIDER PROGRESS NOTE ---
Assessment/Plan - Problem List (1) Pleuritic chest pain Assessment/Plan: Overnight, the work-up was done: she was started on empiric full dose iv heparin drip for a potential PE, until she got Hydrocortisone premedication for her iodine allergy, to undergo a CTA chest. She has no PE. The Heparin was stopped. The CT did conform an infiltrate, and she was started on iv antibiotics. The STAT Echo done last evening showed a small pericardial effusion. Will start NSAID tx today. With all the above started, she will be able to be moved out of the ICU later today, if BP is stable as she is OOB to chair. I discussed all the above with her OB, Dr Celestin, and with the patient and the at bedside. (2) Pericarditis Assessment/Plan: Echo showed a small pericardial effusion. This is the season for viral pericarditis. I suspect she started to splint, causing atelectsis and then a pneumonia, which also added to pleuritic anterior chest pain. She should get 1 week of scheduled NSAIDs: will order Motrin tid with meals for 7 days. This should treat the symptom of pain and treat the inflammation. Will order Incentive Spirometry for the splinting. (3) HCAP (healthcare-associated pneumonia) Assessment/Plan: As in #1 and #2. Start Incentive Spirometry for the atelectasis and pneumonia. Continue empiric iv antibx for 2 days; Pip/Tazo and iv Vanco were started. Transition to oral antibiotics after that. Will order Incentive Spirometry for the splinting. Pharmacy was requested to review if using the antibiotics are OK to have in her system as she restarts nursing the baby. I suspect she may need to pump and dump for 2 days. (4) Eclampsia (toxemia of ) Assessment/Plan: BP was controlled last night on the Labetolol iv doses and iv Hydralazine was added. Today, will stop Labetolol and Hydralazine, use Amlodipine for ease of use if BP still hypertensive, and if OK to use while breast feeding. The creat remains normal at 0.9 today. Yesterday's U/A showed High proteinuria. Dr Celestin wants a urine protein/creat reatio checked, will order. All the above was discussed with Dr Celestin. (5) Proteinuria Assessment/Plan: As above. She may be edematous due to low serum oncotic pressure therefore. She did get one dose of iv Lasix last evening, and a Ma was put in (while in ICU). Will DC the Ma (6) Anemia Assessment/Plan: Hgb holding at 8.8-9.0. The Iron, B12 and Folate levels will be checked. (7) Hypothyroidism Assessment/Plan: This may also be a cause for leg edema. Continue with Synthroid treatment. - Current Meds Current Meds: Current Medications Generic Name Dose Route Start Last Admin Trade Name Freq PRN Reason Stop Dose Admin Acetaminophen 325 mg 07/31/19 17:05 08/04/19 10:57 Tylenol PO 325 mg Q4HR PRN Administration PAIN Amlodipine Besylate 5 mg 08/05/19 09:00 08/05/19 08:49 Norvasc PO 5 mg DAILY HIWOT Administration Docusate Sodium 100 mg 07/31/19 21:00 08/05/19 08:52 Colace 100mg Capsule PO 100 mg BID HIWOT Administration Famotidine 20 mg 08/04/19 21:00 08/05/19 08:53 Pepcid PO 20 mg BID HIWOT Administration Magnesium Sulfate 20 gm in 500 mls @ 50 mls/hr 08/04/19 18:00 08/05/19 05:08 Magnesium Sulf 20 G/500 Ml Bag IV 2 gm/hr .Q10H HIWOT 50 mls/hr Administration 2 GM/HR Sodium Chloride 500 mls @ 0 mls/hr 08/05/19 00:27 08/05/19 02:04 Normal Saline 0.9% IV 20 mls/hr Q24H PRN Administration TKO RATE TKO Piperacillin Sod/Tazobactam 100 mls @ 200 mls/hr 08/05/19 04:00 08/05/19 04:13 Sod 3.375 gm/ Sodium Chloride IV Infused Q6H HIWOT Infusion Vancomycin HCl 100 gm/ Sodium 250 mls @ 167 mls/hr 08/05/19 04:00 08/05/19 04:55 Chloride IV Not Given Q400H HIWOT Sodium Chloride 500 mls @ 0 mls/hr 08/05/19 03:20 08/05/19 04:31 Normal Saline 0.9% IV 20 mls/hr Q24H PRN Administration TKO RATE TKO Vancomycin HCl 1 gm/ Sodium 250 mls @ 167 mls/hr 08/05/19 04:00 08/05/19 06:21 Chloride IV Infused Q12H HIWOT Infusion Ibuprofen 600 mg 08/05/19 08:00 08/05/19 08:52 Motrin PO 600 mg TIDWM HIWOT Administration Levothyroxine Sodium 100 mcg 08/01/19 07:00 08/05/19 06:27 Synthroid PO 100 mcg QDAC HIWOT Administration Morphine Sulfate 2 mg 08/04/19 17:06 08/04/19 20:40 Morphine (Carpuject) IVP 2 mg Q2HR PRN Administration Pain 8 to 10 Simethicone 80 mg 07/31/19 22:00 08/05/19 06:27 Mylicon PO 80 mg TID HIWOT Administration Sodium Chloride 10 ml 07/31/19 07:02 08/04/19 02:24 Normal Saline Flush 0.9% IVP 10 ml PRN PRN Administration NEEDED PER PROVIDER ORDERS Sodium Chloride 10 ml 07/31/19 09:00 08/05/19 08:53 Normal Saline Flush 0.9% IVP 10 ml 0100,0900,1700 HIWOT Administration Sodium Chloride 10 ml 08/05/19 01:00 08/04/19 23:32 Normal Saline Flush 0.9% IVP 10 ml 0100,0900,1700 HIWOT Administration - Lab Result Fish Bone Diagrams: 08/05/19 04:55 08/05/19 04:55 - Additional Planning My Orders: My Active Orders 08/04/19 09:00 CBC W/O DIFF (HEMOGRAM) [HEME] DAILY 08/04/19 17:06 Activity Orders [RC] Q2HR Daily Weight [RC] 0600 IO [RC] Q1HR Initiate Bowel Care Protocol [RC] QSHIFT Initiate Flu Vaccine Screening [RC] ONCE Initiate ICU Electrolyte Prot. [RC] .protocol Initiate Line Care Protocol [RC] .protocol Initiate Personal Care Protoco [RC] .protocol Initiate Pneumonia Vaccine Scr [RC] ONCE Vital Signs [RC] Q1HR Echo Transthoracic Complete [ECHO] Stat Morphine Inj (Carpuject) [Morphine (Carpuject)] 2 mg IVP Q2HR PRN Ondansetron Inj [Zofran Inj] 4 mg IVP Q6HR PRN Sodium Chloride Flush 0.9% [Normal Saline Flush 0.9%] 10 ml IVP PRN PRN Code Status [OTHERS] Routine Condition of Patient [OTHERS] Routine 08/04/19 17:08 Blood Glucose POC [RC] Routine Telemetry- [RC] Q4HR 08/04/19 17:11 General Surgery Consult [CONS] Routine 08/04/19 17:12 Initiate Line Care Protocol [RC] QSHIFT 08/04/19 18:14 Ma Insertion [RC] QSHIFT 08/04/19 18:49 Miscellaenous Nursing Order [RC] ONCE 08/04/19 18:51 Notify Provider - Specific Ins [RC] PRN OCCULT BLOOD IN PAT. SINGLE [RAPID] Routine 08/04/19 21:00 Famotidine [Pepcid] 20 mg PO BID 08/04/19 Dinner Low Sodium Diet [DIET] 08/05/19 URINE MTP/CREATININE RATIO [UC] Urgent 08/05/19 00:27 Sodium Chloride 0.9% [Normal Saline 0.9%] 500 ml IV Q24H 08/05/19 01:00 Sodium Chloride Flush 0.9% [Normal Saline Flush 0.9%] 10 ml IVP 0100,0900,1700 08/05/19 03:20 Sodium Chloride 0.9% [Normal Saline 0.9%] 500 ml IV Q24H 08/05/19 08:00 Ibuprofen [Motrin] 600 mg PO TIDWM 08/05/19 09:00 amLODIPine [Norvasc] 5 mg PO DAILY 08/05/19 09:16 IS [Incentive Spirometry - RT] [RC] TID Subjective - Subjective Patient Reports: Feeling Better, Resting Comfortably, Chest Pain (Still has 2/10 chest pain only with a deep breath. She does feel "mucousy" today.) Objective Vital Signs: Vital Signs - 24 hr 08/04/19 08/04/19 08/04/19 09:40 11:30 11:31 Temperature 36.5 C Heart Rate Heart Rate [ 82 72 Monitoring electrodes] Heart Rate [ Radial] Respiratory 16 Rate Blood Pressure Blood Pressure [Left Brachial artery] Blood Pressure 134/83 H 179/119 H 157/108 H [Right Brachial artery] O2 Saturation 98 08/04/19 08/04/19 08/04/19 12:30 12:31 13:45 Temperature Heart Rate Heart Rate [ 81 78 Monitoring electrodes] Heart Rate [ Radial] Respiratory Rate Blood Pressure Blood Pressure 141/90 H 146/96 H 138/98 H [Left Brachial artery] Blood Pressure [Right Brachial artery] O2 Saturation 99 08/04/19 08/04/19 08/04/19 16:02 16:30 16:55 Temperature Heart Rate Heart Rate [ 73 Monitoring electrodes] Heart Rate [ Radial] Respiratory Rate Blood Pressure Blood Pressure 178/110 H 168/108 H [Left Brachial artery] Blood Pressure 176/108 H 177/109 H [Right Brachial artery] O2 Saturation 08/04/19 08/04/19 08/04/19 16:56 17:02 17:08 Temperature Heart Rate Heart Rate [ Monitoring electrodes] Heart Rate [ Radial] Respiratory Rate Blood Pressure Blood Pressure [Left Brachial artery] Blood Pressure 185/115 H 183/117 H 173/121 H [Right Brachial artery] O2 Saturation 08/04/19 08/04/19 08/04/19 17:15 17:20 17:22 Temperature Heart Rate Heart Rate [ Monitoring electrodes] Heart Rate [ Radial] Respiratory Rate Blood Pressure 160/108 H Blood Pressure [Left Brachial artery] Blood Pressure 181/114 H 159/111 H [Right Brachial artery] O2 Saturation 08/04/19 08/04/19 08/04/19 17:25 17:30 17:35 Temperature Heart Rate Heart Rate [ 70 72 Monitoring electrodes] Heart Rate [ Radial] Respiratory Rate Blood Pressure Blood Pressure [Left Brachial artery] Blood Pressure 160/108 H 134/87 H 117/68 [Right Brachial artery] O2 Saturation 08/04/19 08/04/19 08/04/19 17:43 17:44 17:45 Temperature 36.9 C Heart Rate Heart Rate [ 97 95 96 Monitoring electrodes] Heart Rate [ Radial] Respiratory 20 21 17 Rate Blood Pressure Blood Pressure [Left Brachial artery] Blood Pressure 116/65 118/65 [Right Brachial artery] O2 Saturation 08/04/19 08/04/19 08/04/19 17:58 18:00 18:30 Temperature Heart Rate Heart Rate [ 97 95 88 Monitoring electrodes] Heart Rate [ Radial] Respiratory 25 H 23 16 Rate Blood Pressure Blood Pressure [Left Brachial artery] Blood Pressure 118/63 118/64 110/58 L [Right Brachial artery] O2 Saturation 97 98 97 08/04/19 08/04/19 08/04/19 18:37 18:40 19:08 Temperature 36.9 C Heart Rate Heart Rate [ 93 90 Monitoring electrodes] Heart Rate [ Radial] Respiratory 15 15 Rate Blood Pressure Blood Pressure [Left Brachial artery] Blood Pressure 120/66 114/57 L [Right Brachial artery] O2 Saturation 97 97 08/04/19 08/04/19 08/04/19 19:30 20:00 20:30 Temperature Heart Rate Heart Rate [ 85 90 90 Monitoring electrodes] Heart Rate [ Radial] Respiratory 14 16 19 Rate Blood Pressure Blood Pressure [Left Brachial artery] Blood Pressure 115/69 114/60 115/61 [Right Brachial artery] O2 Saturation 96 95 95 08/04/19 08/04/19 08/04/19 21:00 21:01 21:05 Temperature Heart Rate 88 88 Heart Rate [ 88 Monitoring electrodes] Heart Rate [ Radial] Respiratory 21 19 17 Rate Blood Pressure 108/65 Blood Pressure [Left Brachial artery] Blood Pressure 108/65 [Right Brachial artery] O2 Saturation 97 08/04/19 08/04/19 08/04/19 21:10 21:15 21:20 Temperature Heart Rate 90 89 85 Heart Rate [ Monitoring electrodes] Heart Rate [ Radial] Respiratory 21 20 15 Rate Blood Pressure Blood Pressure [Left Brachial artery] Blood Pressure [Right Brachial artery] O2 Saturation 08/04/19 08/04/19 08/04/19 21:25 21:30 21:31 Temperature Heart Rate 81 86 88 Heart Rate [ 87 Monitoring electrodes] Heart Rate [ Radial] Respiratory 15 14 19 Rate Blood Pressure 112/76 Blood Pressure [Left Brachial artery] Blood Pressure 112/76 [Right Brachial artery] O2 Saturation 96 08/04/19 08/04/19 08/04/19 21:35 21:40 21:45 Temperature Heart Rate 88 89 94 Heart Rate [ Monitoring electrodes] Heart Rate [ Radial] Respiratory 15 18 19 Rate Blood Pressure Blood Pressure [Left Brachial artery] Blood Pressure [Right Brachial artery] O2 Saturation 08/04/19 08/04/19 08/04/19 21:50 21:55 22:00 Temperature Heart Rate 92 93 89 Heart Rate [ 84 Monitoring electrodes] Heart Rate [ Radial] Respiratory 17 21 17 Rate Blood Pressure Blood Pressure [Left Brachial artery] Blood Pressure 118/74 [Right Brachial artery] O2 Saturation 94 08/04/19 08/04/19 08/04/19 22:01 22:05 22:10 Temperature Heart Rate 84 85 86 Heart Rate [ Monitoring electrodes] Heart Rate [ Radial] Respiratory 18 17 19 Rate Blood Pressure 118/74 Blood Pressure [Left Brachial artery] Blood Pressure [Right Brachial artery] O2 Saturation 08/04/19 08/04/19 08/04/19 22:15 22:20 22:25 Temperature Heart Rate 85 82 82 Heart Rate [ Monitoring electrodes] Heart Rate [ Radial] Respiratory 17 18 19 Rate Blood Pressure Blood Pressure [Left Brachial artery] Blood Pressure [Right Brachial artery] O2 Saturation 08/04/19 08/04/19 08/04/19 22:30 22:31 22:35 Temperature Heart Rate 82 82 85 Heart Rate [ 80 Monitoring electrodes] Heart Rate [ Radial] Respiratory 19 18 15 Rate Blood Pressure 107/58 L Blood Pressure [Left Brachial artery] Blood Pressure 107/58 L [Right Brachial artery] O2 Saturation 92 08/04/19 08/04/19 08/04/19 22:40 22:45 22:50 Temperature Heart Rate 83 80 90 Heart Rate [ Monitoring electrodes] Heart Rate [ Radial] Respiratory 17 18 13 Rate Blood Pressure Blood Pressure [Left Brachial artery] Blood Pressure [Right Brachial artery] O2 Saturation 08/04/19 08/04/19 08/04/19 22:55 23:00 23:01 Temperature Heart Rate 82 82 84 Heart Rate [ 83 Monitoring electrodes] Heart Rate [ Radial] Respiratory 19 19 14 Rate Blood Pressure 119/72 Blood Pressure [Left Brachial artery] Blood Pressure 119/72 [Right Brachial artery] O2 Saturation 97 08/04/19 08/04/19 08/04/19 23:05 23:10 23:15 Temperature Heart Rate 85 81 88 Heart Rate [ Monitoring electrodes] Heart Rate [ Radial] Respiratory 22 17 20 Rate Blood Pressure Blood Pressure [Left Brachial artery] Blood Pressure [Right Brachial artery] O2 Saturation 08/04/19 08/04/19 08/04/19 23:20 23:25 23:30 Temperature 36.9 C Heart Rate 87 84 81 Heart Rate [ 82 Monitoring electrodes] Heart Rate [ Radial] Respiratory 14 17 12 Rate Blood Pressure Blood Pressure [Left Brachial artery] Blood Pressure 122/80 [Right Brachial artery] O2 Saturation 95 08/04/19 08/04/19 08/04/19 23:31 23:35 23:40 Temperature Heart Rate 82 81 77 Heart Rate [ Monitoring electrodes] Heart Rate [ Radial] Respiratory 16 18 18 Rate Blood Pressure 122/80 Blood Pressure [Left Brachial artery] Blood Pressure [Right Brachial artery] O2 Saturation 08/04/19 08/04/19 08/04/19 23:45 23:50 23:55 Temperature Heart Rate 75 76 77 Heart Rate [ Monitoring electrodes] Heart Rate [ Radial] Respiratory 18 17 17 Rate Blood Pressure Blood Pressure [Left Brachial artery] Blood Pressure [Right Brachial artery] O2 Saturation 08/05/19 08/05/19 08/05/19 00:00 00:01 00:05 Temperature Heart Rate 75 76 77 Heart Rate [ 76 Monitoring electrodes] Heart Rate [ Radial] Respiratory 17 17 16 Rate Blood Pressure 111/72 Blood Pressure [Left Brachial artery] Blood Pressure 111/72 [Right Brachial artery] O2 Saturation 94 08/05/19 08/05/19 08/05/19 00:10 00:15 00:20 Temperature Heart Rate 77 76 87 Heart Rate [ Monitoring electrodes] Heart Rate [ Radial] Respiratory 16 16 17 Rate Blood Pressure Blood Pressure [Left Brachial artery] Blood Pressure [Right Brachial artery] O2 Saturation 08/05/19 08/05/19 08/05/19 00:25 00:30 00:31 Temperature Heart Rate 78 78 75 Heart Rate [ 76 Monitoring electrodes] Heart Rate [ Radial] Respiratory 19 18 18 Rate Blood Pressure 115/73 Blood Pressure [Left Brachial artery] Blood Pressure 115/73 [Right Brachial artery] O2 Saturation 96 08/05/19 08/05/19 08/05/19 00:35 00:40 00:45 Temperature Heart Rate 76 80 74 Heart Rate [ Monitoring electrodes] Heart Rate [ Radial] Respiratory 17 20 17 Rate Blood Pressure Blood Pressure [Left Brachial artery] Blood Pressure [Right Brachial artery] O2 Saturation 08/05/19 08/05/19 08/05/19 00:50 00:55 01:00 Temperature Heart Rate 75 84 75 Heart Rate [ Monitoring electrodes] Heart Rate [ Radial] Respiratory 17 18 18 Rate Blood Pressure Blood Pressure [Left Brachial artery] Blood Pressure [Right Brachial artery] O2 Saturation 08/05/19 08/05/19 08/05/19 01:01 01:05 01:10 Temperature Heart Rate 77 76 75 Heart Rate [ Monitoring electrodes] Heart Rate [ Radial] Respiratory 17 14 16 Rate Blood Pressure 130/85 H Blood Pressure [Left Brachial artery] Blood Pressure [Right Brachial artery] O2 Saturation 08/05/19 08/05/19 08/05/19 01:30 01:50 01:55 Temperature Heart Rate 80 80 Heart Rate [ 88 Monitoring electrodes] Heart Rate [ Radial] Respiratory 16 15 19 Rate Blood Pressure Blood Pressure [Left Brachial artery] Blood Pressure 126/89 H [Right Brachial artery] O2 Saturation 98 08/05/19 08/05/19 08/05/19 01:56 02:00 02:01 Temperature Heart Rate 80 88 85 Heart Rate [ 87 Monitoring electrodes] Heart Rate [ Radial] Respiratory 20 12 14 Rate Blood Pressure 126/89 H 134/89 H Blood Pressure [Left Brachial artery] Blood Pressure 134/89 H [Right Brachial artery] O2 Saturation 97 08/05/19 08/05/19 08/05/19 02:05 02:10 02:15 Temperature Heart Rate 83 85 83 Heart Rate [ Monitoring electrodes] Heart Rate [ Radial] Respiratory 15 16 21 Rate Blood Pressure Blood Pressure [Left Brachial artery] Blood Pressure [Right Brachial artery] O2 Saturation 08/05/19 08/05/19 08/05/19 02:20 02:25 02:30 Temperature Heart Rate 87 87 80 Heart Rate [ 81 Monitoring electrodes] Heart Rate [ Radial] Respiratory 20 21 15 Rate Blood Pressure Blood Pressure [Left Brachial artery] Blood Pressure 119/78 [Right Brachial artery] O2 Saturation 98 08/05/19 08/05/19 08/05/19 02:31 02:35 02:40 Temperature Heart Rate 81 81 82 Heart Rate [ Monitoring electrodes] Heart Rate [ Radial] Respiratory 18 17 20 Rate Blood Pressure 119/78 Blood Pressure [Left Brachial artery] Blood Pressure [Right Brachial artery] O2 Saturation 08/05/19 08/05/19 08/05/19 02:45 02:50 02:55 Temperature Heart Rate 81 86 80 Heart Rate [ Monitoring electrodes] Heart Rate [ Radial] Respiratory 17 16 19 Rate Blood Pressure Blood Pressure [Left Brachial artery] Blood Pressure [Right Brachial artery] O2 Saturation 08/05/19 08/05/19 08/05/19 03:00 03:01 03:05 Temperature Heart Rate 79 78 78 Heart Rate [ 78 Monitoring electrodes] Heart Rate [ Radial] Respiratory 18 14 15 Rate Blood Pressure 113/73 Blood Pressure [Left Brachial artery] Blood Pressure 113/73 [Right Brachial artery] O2 Saturation 96 08/05/19 08/05/19 08/05/19 03:10 03:15 03:20 Temperature Heart Rate 76 78 76 Heart Rate [ Monitoring electrodes] Heart Rate [ Radial] Respiratory 17 17 17 Rate Blood Pressure Blood Pressure [Left Brachial artery] Blood Pressure [Right Brachial artery] O2 Saturation 08/05/19 08/05/19 08/05/19 03:25 03:30 03:31 Temperature 36.2 C L Heart Rate 77 77 79 Heart Rate [ 80 Monitoring electrodes] Heart Rate [ Radial] Respiratory 16 17 17 Rate Blood Pressure 115/70 Blood Pressure [Left Brachial artery] Blood Pressure 115/70 [Right Brachial artery] O2 Saturation 95 08/05/19 08/05/19 08/05/19 03:35 03:40 03:45 Temperature Heart Rate 79 99 86 Heart Rate [ Monitoring electrodes] Heart Rate [ Radial] Respiratory 17 19 19 Rate Blood Pressure Blood Pressure [Left Brachial artery] Blood Pressure [Right Brachial artery] O2 Saturation 08/05/19 08/05/19 08/05/19 03:50 03:55 04:00 Temperature Heart Rate 84 85 83 Heart Rate [ 79 Monitoring electrodes] Heart Rate [ Radial] Respiratory 18 22 18 Rate Blood Pressure Blood Pressure [Left Brachial artery] Blood Pressure 122/73 [Right Brachial artery] O2 Saturation 97 08/05/19 08/05/19 08/05/19 04:01 04:05 04:10 Temperature Heart Rate 77 85 81 Heart Rate [ Monitoring electrodes] Heart Rate [ Radial] Respiratory 17 21 20 Rate Blood Pressure 122/73 Blood Pressure [Left Brachial artery] Blood Pressure [Right Brachial artery] O2 Saturation 08/05/19 08/05/19 08/05/19 04:11 04:15 04:20 Temperature Heart Rate 78 79 Heart Rate [ Monitoring electrodes] Heart Rate [ Radial] Respiratory 18 17 Rate Blood Pressure 122/73 Blood Pressure [Left Brachial artery] Blood Pressure [Right Brachial artery] O2 Saturation 08/05/19 08/05/19 08/05/19 04:25 04:30 04:31 Temperature Heart Rate 77 77 81 Heart Rate [ 76 Monitoring electrodes] Heart Rate [ Radial] Respiratory 20 18 19 Rate Blood Pressure 121/73 Blood Pressure [Left Brachial artery] Blood Pressure 121/73 [Right Brachial artery] O2 Saturation 96 08/05/19 08/05/19 08/05/19 04:35 04:40 04:45 Temperature Heart Rate 75 74 74 Heart Rate [ Monitoring electrodes] Heart Rate [ Radial] Respiratory 18 17 17 Rate Blood Pressure Blood Pressure [Left Brachial artery] Blood Pressure [Right Brachial artery] O2 Saturation 08/05/19 08/05/19 08/05/19 04:50 04:55 05:00 Temperature Heart Rate 77 75 76 Heart Rate [ 76 Monitoring electrodes] Heart Rate [ Radial] Respiratory 18 17 16 Rate Blood Pressure Blood Pressure [Left Brachial artery] Blood Pressure 113/74 [Right Brachial artery] O2 Saturation 96 08/05/19 08/05/19 08/05/19 05:01 05:05 05:30 Temperature 36.3 C L Heart Rate 76 76 Heart Rate [ 75 Monitoring electrodes] Heart Rate [ Radial] Respiratory 16 17 16 Rate Blood Pressure 113/74 Blood Pressure [Left Brachial artery] Blood Pressure 118/75 [Right Brachial artery] O2 Saturation 96 08/05/19 08/05/19 08/05/19 06:00 06:30 07:00 Temperature Heart Rate Heart Rate [ 80 83 Monitoring electrodes] Heart Rate [ 89 Radial] Respiratory 19 20 13 Rate Blood Pressure Blood Pressure [Left Brachial artery] Blood Pressure 122/78 135/83 H 116/75 [Right Brachial artery] O2 Saturation 97 97 94 08/05/19 08/05/19 07:30 09:00 Temperature Heart Rate Heart Rate [ 86 87 Monitoring electrodes] Heart Rate [ Radial] Respiratory 21 23 Rate Blood Pressure Blood Pressure [Left Brachial artery] Blood Pressure 125/76 123/76 [Right Brachial artery] O2 Saturation 94 95 Oxygen O2 Source Room air I&O (Last 24 Hrs): Intake and Output Totals x24h 08/03/19 08/04/19 08/05/19 23:59 23:59 23:59 Intake Total 1000 608.3 1710 Output Total 400 1985 590 Balance 600 -1376.7 1120 General: Alert, Oriented x3 HEENT: Mucous membr. moist/pink, Other (Vetiligo around lips) Neuro: Alert, Non Focal Cardiovascular: Regular rate, No murmurs Respiratory: No respiratory distress, Breath sounds nml Abdomen: Soft Extremities: Other (1+ edema) - Results Results: Laboratory Results WBC 12.1 x10^3/uL (4.8-10.8) H 08/05/19 04:55 RBC 3.10 10^6/uL (4.20-5.40) L 08/05/19 04:55 Hgb 9.0 g/dL (12.0-16.0) L 08/05/19 04:55 Hct 28.2 % (37.0-47.0) L 08/05/19 04:55 MCV 91.0 fL (81.0-99.0) 08/05/19 04:55 MCH 29.0 pg (27.0-31.0) 08/05/19 04:55 MCHC 31.9 g/dL (32.0-36.0) L 08/05/19 04:55 RDW 14.6 % (12.0-15.0) 08/05/19 04:55 Plt Count 310 10^3/uL (130-450) 08/05/19 04:55 MPV 10.0 fL (7.9-10.8) 08/05/19 04:55 Neut # (Auto) 11.2 10^3/uL (1.5-6.6) H 08/05/19 04:55 Lymph # (Auto) 0.6 10^3/uL (1.5-3.5) L 08/05/19 04:55 [place] # (Auto) 0.1 10^3/uL (0.0-1.0) 08/05/19 04:55 Eos # (Auto) 0.0 10^3/uL (0.0-0.7) 08/05/19 04:55 Baso # (Auto) 0.0 10^3/uL (0.0-0.1) 08/05/19 04:55 Absolute Nucleated RBC 0.00 x10^3/uL 08/05/19 04:55 Nucleated RBC % 0.0 /100WBC 08/05/19 04:55 D-Dimer 611.2 ng/mL (200.0-255.0) H 08/04/19 17:20 Anti-Xa Level 0.1 U/mL (-0.7) 08/05/19 04:55 Sodium 136 mmol/L (135-145) 08/05/19 04:55 Potassium 4.1 mmol/L (3.5-5.0) 08/05/19 04:55 Chloride 105 mmol/L (101-111) 08/05/19 04:55 Carbon Dioxide 23 mmol/L (21-32) 08/05/19 04:55 Anion Gap 8.0 (6-13) 08/05/19 04:55 BUN 13 mg/dL (6-20) 08/05/19 04:55 Creatinine 0.9 mg/dL (0.4-1.0) 08/05/19 04:55 Estimated GFR (MDRD) 78 (>89) L 08/05/19 04:55 Glucose 224 mg/dL (70-100) H 08/05/19 04:55 Uric Acid 5.9 mg/dL (2.6-7.2) 08/05/19 04:55 Calcium 7.2 mg/dL (8.5-10.3) L 08/05/19 04:55 Magnesium 5.9 mg/dL (1.7-2.8) H* 08/05/19 04:55 Total Bilirubin 0.6 mg/dL (0.2-1.0) 08/05/19 04:55 AST 22 IU/L (10-42) 08/05/19 04:55 ALT 19 IU/L (10-60) 08/05/19 04:55 Alkaline Phosphatase 127 IU/L (42-121) H 08/05/19 04:55 Lactate Dehydrogenase 155 IU/L (91-225) 07/31/19 09:50 Troponin I High Sens 10.7 ng/L (2.3-14.8) 08/04/19 19:06 B-Natriuretic Peptide 601 pg/mL (5-100) H 08/04/19 17:00 Total Protein 5.0 g/dL (6.7-8.2) L 08/05/19 04:55 Albumin 2.0 g/dL (3.2-5.5) L 08/05/19 04:55 Globulin 3.0 g/dL (2.1-4.2) 08/05/19 04:55 Albumin/Globulin Ratio 0.7 (1.0-2.2) L 08/05/19 04:55 TSH 26.30 uIU/mL (0.34-5.60) H 08/04/19 17:20 Free T4 0.49 ng/dL (0.58-1.64) L 08/05/19 04:55 Urine Color YELLOW 08/04/19 17:58 Urine Clarity CLEAR (CLEAR) 08/04/19 17:58 Urine pH 7.5 PH (5.0-7.5) 08/04/19 17:58 Ur Specific [place] 1.020 (1.002-1.030) 08/04/19 17:58 Urine Protein 100 mg/dL (NEGATIVE) H 08/04/19 17:58 Urine Glucose (UA) NEGATIVE mg/dL (NEGATIVE) 08/04/19 17:58 Urine Ketones NEGATIVE mg/dL (NEGATIVE) 08/04/19 17:58 Urine Occult Blood NEGATIVE (NEGATIVE) 08/04/19 17:58 Urine Nitrite NEGATIVE (NEGATIVE) 08/04/19 17:58 Urine Bilirubin NEGATIVE (NEGATIVE) 08/04/19 17:58 Urine Urobilinogen 0.2 (NORMAL) E.U./dL (NORMAL) 08/04/19 17:58 Ur Leukocyte Esterase NEGATIVE (NEGATIVE) 08/04/19 17:58 Urine RBC None Seen /HPF (0-5) 08/04/19 17:58 Urine WBC 0-3 /HPF (0-5) 08/04/19 17:58 Ur Epithelial Cells FEW Transitional /HPF (<= Few) 08/04/19 17:58 Ur Squamous Epith Cells FEW Squamous (<= Few) 08/04/19 17:58 Urine Bacteria None Seen /HPF (None Seen) 08/04/19 17:58 Urine Casts 0-2 Hyaline Casts /LPF 08/04/19 17:58 Ur Microscopic Review INDICATED 08/04/19 17:58 Urine Culture Comments NOT INDICATED 08/04/19 17:58 Urine Creatinine 170.5 mg/dL 08/04/19 05:30 Ur Total Protein Timed 632 mg/dL 08/04/19 05:30 Protein/Creatinin Ratio 3.7 (<=0.2) H 08/04/19 05:30 Membranes Rupture POSITIVE (NEGATIVE) A 07/31/19 06:15 Nasal Screen MRSA (PCR) NEGATIVE (NEGATIVE) 08/04/19 18:17 Influenza A (Rapid) Negative (Negative) 08/04/19 23:10 Influenza B (Rapid) Negative (Negative) 08/04/19 23:10
[2019-08-05] MEDS: PRENATAL VITAMIN TABLET PO SCH (13:53)
[2019-08-05 14:27] LABS: CREATININE,URINE 109.4 mg/dL; PROTEIN/CREATININE RATIO,URINE 3.3 (<=0.2)
--- NOTE | 2019-08-05 16:34 | PHARMACY PROGRESS NOTE ---
- Best Possible Medication History Admit Date and Time: 07/31/19 0702 Processed by: Pharmacy Medication History completed: Yes Patient Interview: Completed Secondary Source(s): Physician records, Pharmacy records, Insurance records As the person ultimately responsible for medication therapy, providers are able to order a medication from an existing home medication list in [facility] via the "Reconcile Routine" prior to Confirmation of that medication by director sales support. Such practice is discouraged except when the physician, in their clinical judgment, deems that a medical need exists for a medication without regard to previous use.
[2019-08-05] MEDS ORDERED: LACTATED RINGERS 1,000 ML IV SCH (18:00)
[2019-08-05] MEDS ORDERED: VANCOMYCIN INJ 1 GM in SODIUM CHLORIDE 0.9% 250 ML IV SCH (18:00)
[2019-08-05] MEDS ORDERED: MAGNESIUM SULFATE IN WATER 20 GM/500 ML IV.SOLN IV SCH ×3 (18:00→21:26)
[2019-08-05] MEDS: ACETAMINOPHEN 325 MG TABLET PO PRN (19:47)
--- NOTE | 2019-08-05 21:11 | PROVIDER PROGRESS NOTE ---
Subjective - Prog Note Date Prog Note Date: 08/05/19 Prog Note Time: 21:09 - Subjective Pt reports feeling: Improved (Pt feels much improved. she has developed a productive cough wiht green sputum. She evelin chest pain, or headach.) Objective - Vital Signs/Intake & Output Reviewed Vital Signs: Yes Vital Signs: Vital Signs x48h Temp Pulse Pulse Resp BP Pulse Ox 08/05/19 19:38 36.7 C 92 18 127/65 96 08/05/19 18:51 36.7 C 94 17 142/79 H 97 08/05/19 17:00 36.6 C 96 17 121/86 H 08/05/19 16:00 88 19 116/85 H 95 08/05/19 15:00 88 17 123/54 L 96 08/05/19 14:00 86 26 H 120/68 94 Intake & Output: Intake & Output 08/02/19 08/03/19 08/04/19 08/05/19 23:59 23:59 23:59 23:59 Intake Total 1000 608.3 4409 Output Total 090 326 8792 790 Balance -200 600 -1376.7 3619 - Objective General Appearance: positive: No acute distress, Alert Neck: positive: Nml inspection, No JVD Respiratory: positive: Chest non-tender, No respiratory distress, Breath sounds nml Cardiovascular: positive: Regular rate & rhythm, No gallop (2/6 systolic murmer best left second space.) Extremities: negative: Calf tenderness, Alexandria's sign/cords Reflexes: Knee (R): 4+, Knee (L): 4+ (0 clonus) - Lab Results Fish Bones: 08/05/19 04:55 08/05/19 04:55 Other Labs: Lab Results x24hrs 08/05/19 08/05/19 08/05/19 Range/Units 15:24 09:06 09:00 WBC (4.8-10.8) x10^3/uL RBC (4.20-5.40) 10^6/uL Hgb (12.0-16.0) g/dL Hct (37.0-47.0) % MCV (81.0-99.0) fL MCH (27.0-31.0) pg MCHC (32.0-36.0) g/dL RDW (12.0-15.0) % Plt Count (130-450) 10^3/uL MPV (7.9-10.8) fL Neut # (Auto) (1.5-6.6) 10^3/uL Lymph # (Auto) (1.5-3.5) 10^3/uL [place] # (Auto) (0.0-1.0) 10^3/uL Eos # (Auto) (0.0-0.7) 10^3/uL Baso # (Auto) (0.0-0.1) 10^3/uL Absolute Nucleated RBC x10^3/uL Nucleated RBC % /100WBC Anti-Xa Level ( - 0.7) U/mL Sodium (135-145) mmol/L Potassium (3.5-5.0) mmol/L Chloride (101-111) mmol/L Carbon Dioxide (21-32) mmol/L Anion Gap (6-13) BUN (6-20) mg/dL Creatinine (0.4-1.0) mg/dL Estimated GFR (MDRD) (>89) Glucose (70-100) mg/dL Uric Acid (2.6-7.2) mg/dL Calcium (8.5-10.3) mg/dL Magnesium 6.6 H* 6.3 H* (1.7-2.8) mg/dL Total Bilirubin (0.2-1.0) mg/dL AST (10-42) IU/L ALT (10-60) IU/L Alkaline Phosphatase (42-121) IU/L Total Protein (6.7-8.2) g/dL Albumin (3.2-5.5) g/dL Globulin (2.1-4.2) g/dL Albumin/Globulin Ratio (1.0-2.2) Free T4 (0.58-1.64) ng/dL Urine Creatinine 109.4 mg/dL Ur Total Protein Timed 364 mg/dL Protein/Creatinin Ratio 3.3 H (<=0.2) Nasal Screen MRSA (PCR) (NEGATIVE) Influenza A (Rapid) (Negative) Influenza B (Rapid) (Negative) 08/05/19 08/05/19 08/05/19 Range/Units 04:55 04:55 04:55 WBC (4.8-10.8) x10^3/uL RBC (4.20-5.40) 10^6/uL Hgb (12.0-16.0) g/dL Hct (37.0-47.0) % MCV (81.0-99.0) fL MCH (27.0-31.0) pg MCHC (32.0-36.0) g/dL RDW (12.0-15.0) % Plt Count (130-450) 10^3/uL MPV (7.9-10.8) fL Neut # (Auto) (1.5-6.6) 10^3/uL Lymph # (Auto) (1.5-3.5) 10^3/uL [place] # (Auto) (0.0-1.0) 10^3/uL Eos # (Auto) (0.0-0.7) 10^3/uL Baso # (Auto) (0.0-0.1) 10^3/uL Absolute Nucleated RBC x10^3/uL Nucleated RBC % /100WBC Anti-Xa Level 0.1 ( - 0.7) U/mL Sodium (135-145) mmol/L Potassium (3.5-5.0) mmol/L Chloride (101-111) mmol/L Carbon Dioxide (21-32) mmol/L Anion Gap (6-13) BUN (6-20) mg/dL Creatinine (0.4-1.0) mg/dL Estimated GFR (MDRD) (>89) Glucose (70-100) mg/dL Uric Acid 5.9 (2.6-7.2) mg/dL Calcium (8.5-10.3) mg/dL Magnesium (1.7-2.8) mg/dL Total Bilirubin (0.2-1.0) mg/dL AST (10-42) IU/L ALT (10-60) IU/L Alkaline Phosphatase (42-121) IU/L Total Protein (6.7-8.2) g/dL Albumin (3.2-5.5) g/dL Globulin (2.1-4.2) g/dL Albumin/Globulin Ratio (1.0-2.2) Free T4 0.49 L (0.58-1.64) ng/dL Urine Creatinine mg/dL Ur Total Protein Timed mg/dL Protein/Creatinin Ratio (<=0.2) Nasal Screen MRSA (PCR) (NEGATIVE) Influenza A (Rapid) (Negative) Influenza B (Rapid) (Negative) 08/05/19 08/05/19 08/05/19 Range/Units 04:55 04:55 00:55 WBC 12.1 H (4.8-10.8) x10^3/uL RBC 3.10 L (4.20-5.40) 10^6/uL Hgb 9.0 L (12.0-16.0) g/dL Hct 28.2 L (37.0-47.0) % MCV 91.0 (81.0-99.0) fL MCH 29.0 (27.0-31.0) pg MCHC 31.9 L (32.0-36.0) g/dL RDW 14.6 (12.0-15.0) % Plt Count 310 (130-450) 10^3/uL MPV 10.0 (7.9-10.8) fL Neut # (Auto) 11.2 H (1.5-6.6) 10^3/uL Lymph # (Auto) 0.6 L (1.5-3.5) 10^3/uL [place] # (Auto) 0.1 (0.0-1.0) 10^3/uL Eos # (Auto) 0.0 (0.0-0.7) 10^3/uL Baso # (Auto) 0.0 (0.0-0.1) 10^3/uL Absolute Nucleated RBC 0.00 x10^3/uL Nucleated RBC % 0.0 /100WBC Anti-Xa Level 0.7 ( - 0.7) U/mL Sodium 136 (135-145) mmol/L Potassium 4.1 (3.5-5.0) mmol/L Chloride 105 (101-111) mmol/L Carbon Dioxide 23 (21-32) mmol/L Anion Gap 8.0 (6-13) BUN 13 (6-20) mg/dL Creatinine 0.9 (0.4-1.0) mg/dL Estimated GFR (MDRD) 78 L (>89) Glucose 224 H (70-100) mg/dL Uric Acid (2.6-7.2) mg/dL Calcium 7.2 L (8.5-10.3) mg/dL Magnesium 5.9 H* (1.7-2.8) mg/dL Total Bilirubin 0.6 (0.2-1.0) mg/dL AST 22 (10-42) IU/L ALT 19 (10-60) IU/L Alkaline Phosphatase 127 H (42-121) IU/L Total Protein 5.0 L (6.7-8.2) g/dL Albumin 2.0 L (3.2-5.5) g/dL Globulin 3.0 (2.1-4.2) g/dL Albumin/Globulin Ratio 0.7 L (1.0-2.2) Free T4 (0.58-1.64) ng/dL Urine Creatinine mg/dL Ur Total Protein Timed mg/dL Protein/Creatinin Ratio (<=0.2) Nasal Screen MRSA (PCR) (NEGATIVE) Influenza A (Rapid) (Negative) Influenza B (Rapid) (Negative) 08/05/19 08/04/19 08/04/19 Range/Units 00:55 23:10 21:58 WBC (4.8-10.8) x10^3/uL RBC (4.20-5.40) 10^6/uL Hgb (12.0-16.0) g/dL Hct (37.0-47.0) % MCV (81.0-99.0) fL MCH (27.0-31.0) pg MCHC (32.0-36.0) g/dL RDW (12.0-15.0) % Plt Count (130-450) 10^3/uL MPV (7.9-10.8) fL Neut # (Auto) (1.5-6.6) 10^3/uL Lymph # (Auto) (1.5-3.5) 10^3/uL [place] # (Auto) (0.0-1.0) 10^3/uL Eos # (Auto) (0.0-0.7) 10^3/uL Baso # (Auto) (0.0-0.1) 10^3/uL Absolute Nucleated RBC x10^3/uL Nucleated RBC % /100WBC Anti-Xa Level ( - 0.7) U/mL Sodium (135-145) mmol/L Potassium (3.5-5.0) mmol/L Chloride (101-111) mmol/L Carbon Dioxide (21-32) mmol/L Anion Gap (6-13) BUN (6-20) mg/dL Creatinine (0.4-1.0) mg/dL Estimated GFR (MDRD) (>89) Glucose (70-100) mg/dL Uric Acid (2.6-7.2) mg/dL Calcium (8.5-10.3) mg/dL Magnesium 6.3 H* 5.7 H* (1.7-2.8) mg/dL Total Bilirubin (0.2-1.0) mg/dL AST (10-42) IU/L ALT (10-60) IU/L Alkaline Phosphatase (42-121) IU/L Total Protein (6.7-8.2) g/dL Albumin (3.2-5.5) g/dL Globulin (2.1-4.2) g/dL Albumin/Globulin Ratio (1.0-2.2) Free T4 (0.58-1.64) ng/dL Urine Creatinine mg/dL Ur Total Protein Timed mg/dL Protein/Creatinin Ratio (<=0.2) Nasal Screen MRSA (PCR) (NEGATIVE) Influenza A (Rapid) Negative (Negative) Influenza B (Rapid) Negative (Negative) 08/04/19 Range/Units 18:17 WBC (4.8-10.8) x10^3/uL RBC (4.20-5.40) 10^6/uL Hgb (12.0-16.0) g/dL Hct (37.0-47.0) % MCV (81.0-99.0) fL MCH (27.0-31.0) pg MCHC (32.0-36.0) g/dL RDW (12.0-15.0) % Plt Count (130-450) 10^3/uL MPV (7.9-10.8) fL Neut # (Auto) (1.5-6.6) 10^3/uL Lymph # (Auto) (1.5-3.5) 10^3/uL [place] # (Auto) (0.0-1.0) 10^3/uL Eos # (Auto) (0.0-0.7) 10^3/uL Baso # (Auto) (0.0-0.1) 10^3/uL Absolute Nucleated RBC x10^3/uL Nucleated RBC % /100WBC Anti-Xa Level ( - 0.7) U/mL Sodium (135-145) mmol/L Potassium (3.5-5.0) mmol/L Chloride (101-111) mmol/L Carbon Dioxide (21-32) mmol/L Anion Gap (6-13) BUN (6-20) mg/dL Creatinine (0.4-1.0) mg/dL Estimated GFR (MDRD) (>89) Glucose (70-100) mg/dL Uric Acid (2.6-7.2) mg/dL Calcium (8.5-10.3) mg/dL Magnesium (1.7-2.8) mg/dL Total Bilirubin (0.2-1.0) mg/dL AST (10-42) IU/L ALT (10-60) IU/L Alkaline Phosphatase (42-121) IU/L Total Protein (6.7-8.2) g/dL Albumin (3.2-5.5) g/dL Globulin (2.1-4.2) g/dL Albumin/Globulin Ratio (1.0-2.2) Free T4 (0.58-1.64) ng/dL Urine Creatinine mg/dL Ur Total Protein Timed mg/dL Protein/Creatinin Ratio (<=0.2) Nasal Screen MRSA (PCR) NEGATIVE (NEGATIVE) Influenza A (Rapid) (Negative) Influenza B (Rapid) (Negative) - Diagnostic Imaging Diagnostic Imaging Results: positive: Final report reviewed (No PE,) Assessment/Plan - Problem List (1) Preeclampsia Impression: good control with Norvasic second 24 hours on Magnesium will taperoff (3) Pericarditis Impression: responding to Motrin (4) Pneumonia affecting , antepartum Impression: minimal cough on Vanc and Zocin. await cultures. anticipate Discharge on Augmentin 500, of Azithromycin
[2019-08-05] MEDS: SODIUM CHLORIDE FLUSH 0.9% 10 ML SYRINGE IVP PRN (23:36)
[2019-08-06] MEDS: SODIUM CHLORIDE FLUSH 0.9% 10 ML SYRINGE IVP SCH ×2 (01:19→09:02)
[2019-08-06] MEDS: ACETAMINOPHEN 325 MG TABLET PO PRN (04:11)
[2019-08-06 04:45] LABS: BASOPHILS # (AUTO) 0.1 10^3/uL (0.0-0.1); BASOPHILS % (AUTO) 0.5 %; EOSINOPHILS # (AUTO) 0.1 10^3/uL (0.0-0.7); EOSINOPHILS % (AUTO) 0.8 %; HGB - HEMOGLOBIN 9.1 g/dL (12.0-16.0); LYMPHOCYTES # (AUTO) 1.8 10^3/uL (1.5-3.5); LYMPHOCYTES % (AUTO) 14.8 %; MEAN CORPUSCULAR HEMOGLOBIN 28.4 pg (27.0-31.0); MEAN CORPUSCULAR HGB CONC 31.1 g/dL (32.0-36.0); MEAN CORPUSCULAR VOLUME 91.6 fL (81.0-99.0); MEAN PLATELET VOLUME 9.5 fL (7.9-10.8); MONOCYTES # (AUTO) 0.8 10^3/uL (0.0-1.0); MONOCYTES % (AUTO) 6.1 %; NEUTROPHILS # (AUTO) 9.5 10^3/uL (1.5-6.6); NEUTROPHILS % (AUTO) 76.3 %; PLT - PLATELET COUNT 336 10^3/uL (130-450); RED CELL DISTRIBUTION WIDTH 14.8 % (12.0-15.0); WHITE BLOOD COUNT 12.4 x10^3/uL (4.8-10.8)
[2019-08-06 04:55] LABS: ALBUMIN 2.2 g/dL (3.2-5.5); ALBUMIN/GLOBULIN RATIO 0.7 (1.0-2.2); BILIRUBIN,TOTAL 0.3 mg/dL (0.2-1.0); CALCIUM 6.6 mg/dL (8.5-10.3); TOTAL PROTEIN 5.5 g/dL (6.7-8.2)
[2019-08-06] MEDS ORDERED: VANCOMYCIN INJ 1 GM in SODIUM CHLORIDE 0.9% 250 ML IV SCH (05:00)
[2019-08-06 05:06] LABS: CREATININE,URINE 109.7 mg/dL; PROTEIN/CREATININE RATIO,URINE 2.3 (<=0.2)
[2019-08-06] MEDS: LEVOTHYROXINE 100 MCG TABLET PO SCH (06:29)
[2019-08-06] MEDS: PIPERACILLIN/TAZOBACTAM 3.375 GM in SODIUM CHLORIDE 0.9% MINIBAG 100 ML IV SCH ×2 (06:29→12:57)
[2019-08-06] MEDS: SIMETHICONE CHEW 80 MG TABLET PO SCH ×3 (06:29→23:48)
--- NOTE | 2019-08-06 08:07 | PROVIDER PROGRESS NOTE ---
Assessment/Plan - Problem List (1) HCAP (healthcare-associated pneumonia) Assessment/Plan: Yesterday she reported starting to cough and making green sputum. Sputum cx was ordered yesterday but not collected yet. She is on empiric iv Zosyn and iv Vanco. Today is day #3 of antibiotics. Recommend transitioning to oral antibx using Azithromycin. A Zpak is a good choice, she can be discharged with this. Discussed the above with the patient, and Dr Celestin, who will Dch the patient today. (2) Pericarditis Assessment/Plan: This is the time of year that viral pericarditis is seen. The rub was audible at the apex, since she has a posterior pericardial effusion. I let Dr Celestin listen with my stethoscope positioned in the area of loudest rub. Management is with anti-inflammatory meds: the plan is for Motrin tid with meals for a total of 1 week; today is day #2. She can be Dch with a prescription for this. (3) Eclampsia (toxemia of ) Assessment/Plan: BP is well controlled on Norvasc 5 mg daily in a.m. Continue this if OK to use while breast feeding. Plan would be to continue this after DCh and stop as eclampsia resolves. Mg treatment as per [facility]. She will need f/u of her proteinuria after Dch, to assure it resolves and that she does not develop chronic renal failure, which will be done by seeing OB in 1 week. (4) Proteinuria Assessment/Plan: As above in #3 (5) Anemia Assessment/Plan: Hgb dropped since admission but has been stable daily at around 10. B12, Folate and Iron stores ordered to assess if she needs oral replacement. (6) Hypothyroidism Assessment/Plan: Continue thyroid replacement with Synthroid if OK to use while breast feeding. The reported that the last TSH was checked 1 mo ago (at [facility]) and her dose was increased from 75mcg to 100mcg then. Here, her TSH was still excessively high, therefore the 100 mcg dose is too low. The dose should be increased to 112 mcg daily, discussed with Dr Celestin for a DCh prescription by him. She will need outpatient F/U of her TSH in several mos, and dosing adjustments as needed. (7) (spontaneous vaginal delivery) Assessment/Plan: Manage as per OB (8) Pleuritic chest pain Assessment/Plan: Resolved - Current Meds Current Meds: Current Medications Generic Name Dose Route Start Last Admin Trade Name Freq PRN Reason Stop Dose Admin Acetaminophen 325 mg 07/31/19 17:05 08/06/19 04:11 Tylenol PO 325 mg Q4HR PRN Administration PAIN Amlodipine Besylate 5 mg 08/05/19 09:00 08/05/19 08:49 Norvasc PO 5 mg DAILY HIWOT Administration Docusate Sodium 100 mg 07/31/19 21:00 08/05/19 23:34 Colace 100mg Capsule PO 100 mg BID HIWOT Administration Famotidine 20 mg 08/04/19 21:00 08/05/19 23:34 Pepcid PO 20 mg BID HIWOT Administration Sodium Chloride 500 mls @ 0 mls/hr 08/05/19 00:27 08/06/19 07:59 Normal Saline 0.9% IV Infused Q24H PRN Infusion TKO RATE TKO Sodium Chloride 500 mls @ 0 mls/hr 08/05/19 03:20 08/06/19 07:59 Normal Saline 0.9% IV Infused Q24H PRN Infusion TKO RATE TKO Piperacillin Sod/Tazobactam 100 mls @ 200 mls/hr 08/06/19 00:00 08/06/19 07:00 Sod 3.375 gm/ Sodium Chloride IV Infused Q6H HIWOT Infusion Vancomycin HCl 1 gm/ Sodium 250 mls @ 167 mls/hr 08/06/19 05:00 08/06/19 06:24 Chloride IV Infused Q12H HIWOT Infusion Ibuprofen 600 mg 08/05/19 08:00 08/05/19 16:58 Motrin PO 600 mg TIDWM HIWOT Administration Levothyroxine Sodium 100 mcg 08/01/19 07:00 08/06/19 06:29 Synthroid PO 100 mcg QDAC HIWOT Administration Multivit/Folic Acid/Iron 1 tab 08/05/19 14:00 08/05/19 13:53 Trinatal Rx 1 PO 1 tab DAILYWM HIOWT Administration Simethicone 80 mg 07/31/19 22:00 08/06/19 06:29 Mylicon PO 80 mg TID HIWOT Administration Sodium Chloride 10 ml 08/05/19 01:00 08/06/19 01:19 Normal Saline Flush 0.9% IVP 10 ml 0100,0900,1700 HIWOT Administration - Lab Result Fish Bone Diagrams: 08/06/19 04:25 08/06/19 04:25 - Additional Planning My Orders: My Active Orders 08/05/19 08:00 Ibuprofen [Motrin] 600 mg PO TIDWM 08/05/19 09:00 amLODIPine [Norvasc] 5 mg PO DAILY 08/05/19 14:00 Vitamin [Trinatal Rx 1] 1 tab PO DAILYWM 08/06/19 04:25 FOLATE [IAI] Routine IRON TIBC PANEL [CHEM] Routine VITAMIN B12 [IAI] Routine 08/06/19 Lunch Low Sodium Diet [DIET] Subjective - Subjective Patient Reports: Feeling Better, No Complaints (Pleuritic pain has resolved) Objective Vital Signs: Vital Signs - 24 hr 08/05/19 08/05/19 08/05/19 09:00 10:00 11:00 Temperature Heart Rate [ 87 88 85 Monitoring electrodes] Respiratory 23 14 18 Rate Blood Pressure 123/76 117/74 120/81 H [Right Brachial artery] O2 Saturation 95 92 99 08/05/19 08/05/19 08/05/19 12:00 13:00 14:00 Temperature 36.3 C L Heart Rate [ 92 88 86 Monitoring electrodes] Respiratory 16 19 26 H Rate Blood Pressure 111/56 L 122/72 120/68 [Right Brachial artery] O2 Saturation 96 95 94 08/05/19 08/05/19 08/05/19 15:00 16:00 17:00 Temperature 36.6 C Heart Rate [ 88 88 96 Monitoring electrodes] Respiratory 17 19 17 Rate Blood Pressure 123/54 L 116/85 H 121/86 H [Right Brachial artery] O2 Saturation 96 95 08/05/19 08/05/19 08/05/19 18:51 19:38 23:31 Temperature 36.7 C 36.7 C 36.6 C Heart Rate [ 94 92 84 Monitoring electrodes] Respiratory 17 18 18 Rate Blood Pressure 142/79 H 127/65 134/84 H [Right Brachial artery] O2 Saturation 97 96 96 08/06/19 08/06/19 08/06/19 01:50 04:00 04:41 Temperature 36.9 C 36.7 C Heart Rate [ 87 78 Monitoring electrodes] Respiratory 18 16 Rate Blood Pressure 124/78 142/93 H 136/85 H [Right Brachial artery] O2 Saturation 97 96 Oxygen O2 Source Room air I&O (Last 24 Hrs): Intake and Output Totals x24h 08/04/19 08/05/19 08/06/19 23:59 23:59 23:59 Intake Total 608.3 5139 2055.000 Output Total 1985 1190 630 Balance -1376.7 3949 1425.000 General: Alert, Oriented x3 HEENT: Mucous membr. moist/pink, Other (vetiligo around eyes and lips noted) Neck: Supple, No JVD Neuro: Alert, Non Focal Cardiovascular: Regular rate, Other (3 component rub heard at apex) Respiratory: No respiratory distress, Breath sounds nml Abdomen: Normal bowel sounds, Soft Extremities: Other (edema 1+) - Results Results: Laboratory Results WBC 12.4 x10^3/uL (4.8-10.8) H 08/06/19 04:25 RBC 3.20 10^6/uL (4.20-5.40) L 08/06/19 04:25 Hgb 9.1 g/dL (12.0-16.0) L 08/06/19 04:25 Hct 29.3 % (37.0-47.0) L 08/06/19 04:25 MCV 91.6 fL (81.0-99.0) 08/06/19 04:25 MCH 28.4 pg (27.0-31.0) 08/06/19 04:25 MCHC 31.1 g/dL (32.0-36.0) L 08/06/19 04:25 RDW 14.8 % (12.0-15.0) 08/06/19 04:25 Plt Count 336 10^3/uL (130-450) 08/06/19 04:25 MPV 9.5 fL (7.9-10.8) 08/06/19 04:25 Neut # (Auto) 9.5 10^3/uL (1.5-6.6) H 08/06/19 04:25 Lymph # (Auto) 1.8 10^3/uL (1.5-3.5) 08/06/19 04:25 [place] # (Auto) 0.8 10^3/uL (0.0-1.0) 08/06/19 04:25 Eos # (Auto) 0.1 10^3/uL (0.0-0.7) 08/06/19 04:25 Baso # (Auto) 0.1 10^3/uL (0.0-0.1) 08/06/19 04:25 Absolute Nucleated RBC 0.00 x10^3/uL 08/06/19 04:25 Nucleated RBC % 0.0 /100WBC 08/06/19 04:25 D-Dimer 611.2 ng/mL (200.0-255.0) H 08/04/19 17:20 Anti-Xa Level 0.1 U/mL (-0.7) 08/05/19 04:55 Sodium 138 mmol/L (135-145) 08/06/19 04:25 Potassium 3.7 mmol/L (3.5-5.0) 08/06/19 04:25 Chloride 106 mmol/L (101-111) 08/06/19 04:25 Carbon Dioxide 26 mmol/L (21-32) 08/06/19 04:25 Anion Gap 6.0 (6-13) 08/06/19 04:25 BUN 15 mg/dL (6-20) 08/06/19 04:25 Creatinine 1.0 mg/dL (0.4-1.0) 08/06/19 04:25 Estimated GFR (MDRD) 69 (>89) L 08/06/19 04:25 Glucose 93 mg/dL (70-100) 08/06/19 04:25 Uric Acid 5.0 mg/dL (2.6-7.2) 08/06/19 04:25 Calcium 6.6 mg/dL (8.5-10.3) L 08/06/19 04:25 Magnesium 6.6 mg/dL (1.7-2.8) H* 08/05/19 15:24 Total Bilirubin 0.3 mg/dL (0.2-1.0) 08/06/19 04:25 AST 23 IU/L (10-42) 08/06/19 04:25 ALT 23 IU/L (10-60) 08/06/19 04:25 Alkaline Phosphatase 118 IU/L (42-121) 08/06/19 04:25 Lactate Dehydrogenase 155 IU/L (91-225) 07/31/19 09:50 Troponin I High Sens 10.7 ng/L (2.3-14.8) 08/04/19 19:06 B-Natriuretic Peptide 601 pg/mL (5-100) H 08/04/19 17:00 Total Protein 5.5 g/dL (6.7-8.2) L 08/06/19 04:25 Albumin 2.2 g/dL (3.2-5.5) L 08/06/19 04:25 Globulin 3.3 g/dL (2.1-4.2) 08/06/19 04:25 Albumin/Globulin Ratio 0.7 (1.0-2.2) L 08/06/19 04:25 TSH 26.30 uIU/mL (0.34-5.60) H 08/04/19 17:20 Free T4 0.49 ng/dL (0.58-1.64) L 08/05/19 04:55 Urine Color YELLOW 08/04/19 17:58 Urine Clarity CLEAR (CLEAR) 08/04/19 17:58 Urine pH 7.5 PH (5.0-7.5) 08/04/19 17:58 Ur Specific [place] 1.020 (1.002-1.030) 08/04/19 17:58 Urine Protein 100 mg/dL (NEGATIVE) H 08/04/19 17:58 Urine Glucose (UA) NEGATIVE mg/dL (NEGATIVE) 08/04/19 17:58 Urine Ketones NEGATIVE mg/dL (NEGATIVE) 08/04/19 17:58 Urine Occult Blood NEGATIVE (NEGATIVE) 08/04/19 17:58 Urine Nitrite NEGATIVE (NEGATIVE) 08/04/19 17:58 Urine Bilirubin NEGATIVE (NEGATIVE) 08/04/19 17:58 Urine Urobilinogen 0.2 (NORMAL) E.U./dL (NORMAL) 08/04/19 17:58 Ur Leukocyte Esterase NEGATIVE (NEGATIVE) 08/04/19 17:58 Urine RBC None Seen /HPF (0-5) 08/04/19 17:58 Urine WBC 0-3 /HPF (0-5) 08/04/19 17:58 Ur Epithelial Cells FEW Transitional /HPF (<= Few) 08/04/19 17:58 Ur Squamous Epith Cells FEW Squamous (<= Few) 08/04/19 17:58 Urine Bacteria None Seen /HPF (None Seen) 08/04/19 17:58 Urine Casts 0-2 Hyaline Casts /LPF 08/04/19 17:58 Ur Microscopic Review INDICATED 08/04/19 17:58 Urine Culture Comments NOT INDICATED 08/04/19 17:58 Urine Creatinine 109.7 mg/dL 08/06/19 04:00 Ur Total Protein Timed 254 mg/dL 08/06/19 04:00 Protein/Creatinin Ratio 2.3 (<=0.2) H 08/06/19 04:00 Membranes Rupture POSITIVE (NEGATIVE) A 07/31/19 06:15 Nasal Screen MRSA (PCR) NEGATIVE (NEGATIVE) 08/04/19 18:17 Influenza A (Rapid) Negative (Negative) 08/04/19 23:10 Influenza B (Rapid) Negative (Negative) 08/04/19 23:10
[2019-08-06 08:27] LABS: FOLATE 19.19 ng/mL (5.90 - >24.8)
[2019-08-06 08:36] LABS: % IRON SATURATION 13 % (20-50); IRON 54 ug/dL (28-170); TOTAL IRON BINDING CAPACITY 403 ug/dL (250-450); TRANSFERRIN 288 mg/dL (192-382)
[2019-08-06] MEDS: PRENATAL VITAMIN TABLET PO SCH (09:01)
[2019-08-06] MEDS: FAMOTIDINE 20 MG TABLET PO SCH ×2 (09:01→23:48)
[2019-08-06] MEDS: DOCUSATE SODIUM 100 MG CAPSULE PO SCH (09:01)
[2019-08-06] MEDS: IBUPROFEN 600 MG TABLET PO SCH ×2 (09:01→12:23)
[2019-08-06] MEDS: amLODIPine 5 MG TABLET PO SCH (09:01)
--- NOTE | 2019-08-06 09:03 | PROVIDER PROGRESS NOTE ---
Subjective - Prog Note Date Prog Note Date: 08/06/19 Prog Note Time: 09:01 - Subjective Pt reports feeling: Improved (Pt evelin any pain. cough nonproductive. moving well. pumping and dumping) Objective - Vital Signs/Intake & Output Reviewed Vital Signs: Yes Vital Signs: Vital Signs x48h Temp Pulse Resp BP Pulse Ox 08/06/19 04:41 36.7 C 78 16 136/85 H 96 08/06/19 04:00 142/93 H 08/06/19 01:50 36.9 C 87 18 124/78 97 Intake & Output: Intake & Output 08/03/19 08/04/19 08/05/19 08/06/19 23:59 23:59 23:59 23:59 Intake Total 1000 608.3 5256.7 2055.000 Output Total 400 1985 1190 630 Balance 600 -1376.7 4066.7 1425.000 - Objective General Appearance: positive: No acute distress, Alert Respiratory: positive: Chest non-tender, No respiratory distress Cardiovascular: positive: Regular rate & rhythm, No gallop, Friction rub (best at left axilla) Abdomen: positive: Non-tender Extremities: negative: Calf tenderness, Alexandria's sign/cords Neurologic/Psychiatric: positive: Oriented x3 - Lab Results Fish Bones: 08/06/19 04:25 08/06/19 04:25 Other Labs: Lab Results x24hrs 08/06/19 08/06/19 08/06/19 Range/Units 04:25 04:25 04:25 WBC (4.8-10.8) x10^3/uL RBC (4.20-5.40) 10^6/uL Hgb (12.0-16.0) g/dL Hct (37.0-47.0) % MCV (81.0-99.0) fL MCH (27.0-31.0) pg MCHC (32.0-36.0) g/dL RDW (12.0-15.0) % Plt Count (130-450) 10^3/uL MPV (7.9-10.8) fL Neut # (Auto) (1.5-6.6) 10^3/uL Lymph # (Auto) (1.5-3.5) 10^3/uL M[place]orm[place] # (Auto) (0.0-1.0) 10^3/uL Eos # (Auto) (0.0-0.7) 10^3/uL Baso # (Auto) (0.0-0.1) 10^3/uL Absolute Nucleated RBC x10^3/uL Nucleated RBC % /100WBC Sodium 138 (135-145) mmol/L Potassium 3.7 (3.5-5.0) mmol/L Chloride 106 (101-111) mmol/L Carbon Dioxide 26 (21-32) mmol/L Anion Gap 6.0 (6-13) BUN 15 (6-20) mg/dL Creatinine 1.0 (0.4-1.0) mg/dL Estimated GFR (MDRD) 69 L (>89) Glucose 93 (70-100) mg/dL Uric Acid (2.6-7.2) mg/dL Calcium 6.6 L (8.5-10.3) mg/dL Magnesium (1.7-2.8) mg/dL Iron 54 (28-170) ug/dL TIBC 403 (250-450) ug/dL % Saturation 13 L (20-50) % Transferrin 288 (192-382) mg/dL Total Bilirubin 0.3 (0.2-1.0) mg/dL AST 23 (10-42) IU/L ALT 23 (10-60) IU/L Alkaline Phosphatase 118 (42-121) IU/L Total Protein 5.5 L (6.7-8.2) g/dL Albumin 2.2 L (3.2-5.5) g/dL Globulin 3.3 (2.1-4.2) g/dL Albumin/Globulin Ratio 0.7 L (1.0-2.2) Vitamin B12 235 (180-914) pg/mL Folate 19.19 (5.90 - >24.8) ng/mL Urine Creatinine mg/dL Ur Total Protein Timed mg/dL Protein/Creatinin Ratio (<=0.2) 08/06/19 08/06/19 08/06/19 Range/Units 04:25 04:25 04:00 WBC 12.4 H (4.8-10.8) x10^3/uL RBC 3.20 L (4.20-5.40) 10^6/uL Hgb 9.1 L (12.0-16.0) g/dL Hct 29.3 L (37.0-47.0) % MCV 91.6 (81.0-99.0) fL MCH 28.4 (27.0-31.0) pg MCHC 31.1 L (32.0-36.0) g/dL RDW 14.8 (12.0-15.0) % Plt Count 336 (130-450) 10^3/uL MPV 9.5 (7.9-10.8) fL Neut # (Auto) 9.5 H (1.5-6.6) 10^3/uL Lymph # (Auto) 1.8 (1.5-3.5) 10^3/uL [place] # (Auto) 0.8 (0.0-1.0) 10^3/uL Eos # (Auto) 0.1 (0.0-0.7) 10^3/uL Baso # (Auto) 0.1 (0.0-0.1) 10^3/uL Absolute Nucleated RBC 0.00 x10^3/uL Nucleated RBC % 0.0 /100WBC Sodium (135-145) mmol/L Potassium (3.5-5.0) mmol/L Chloride (101-111) mmol/L Carbon Dioxide (21-32) mmol/L Anion Gap (6-13) BUN (6-20) mg/dL Creatinine (0.4-1.0) mg/dL Estimated GFR (MDRD) (>89) Glucose (70-100) mg/dL Uric Acid 5.0 (2.6-7.2) mg/dL Calcium (8.5-10.3) mg/dL Magnesium (1.7-2.8) mg/dL Iron (28-170) ug/dL TIBC (250-450) ug/dL % Saturation (20-50) % Transferrin (192-382) mg/dL Total Bilirubin (0.2-1.0) mg/dL AST (10-42) IU/L ALT (10-60) IU/L Alkaline Phosphatase (42-121) IU/L Total Protein (6.7-8.2) g/dL Albumin (3.2-5.5) g/dL Globulin (2.1-4.2) g/dL Albumin/Globulin Ratio (1.0-2.2) Vitamin B12 (180-914) pg/mL Folate (5.90 - >24.8) ng/mL Urine Creatinine 109.7 mg/dL Ur Total Protein Timed 254 mg/dL Protein/Creatinin Ratio 2.3 H (<=0.2) 08/05/19 08/05/19 08/05/19 Range/Units 15:24 09:06 09:00 WBC (4.8-10.8) x10^3/uL RBC (4.20-5.40) 10^6/uL Hgb (12.0-16.0) g/dL Hct (37.0-47.0) % MCV (81.0-99.0) fL MCH (27.0-31.0) pg MCHC (32.0-36.0) g/dL RDW (12.0-15.0) % Plt Count (130-450) 10^3/uL MPV (7.9-10.8) fL Neut # (Auto) (1.5-6.6) 10^3/uL Lymph # (Auto) (1.5-3.5) 10^3/uL [place] # (Auto) (0.0-1.0) 10^3/uL Eos # (Auto) (0.0-0.7) 10^3/uL Baso # (Auto) (0.0-0.1) 10^3/uL Absolute Nucleated RBC x10^3/uL Nucleated RBC % /100WBC Sodium (135-145) mmol/L Potassium (3.5-5.0) mmol/L Chloride (101-111) mmol/L Carbon Dioxide (21-32) mmol/L Anion Gap (6-13) BUN (6-20) mg/dL Creatinine (0.4-1.0) mg/dL Estimated GFR (MDRD) (>89) Glucose (70-100) mg/dL Uric Acid (2.6-7.2) mg/dL Calcium (8.5-10.3) mg/dL Magnesium 6.6 H* 6.3 H* (1.7-2.8) mg/dL Iron (28-170) ug/dL TIBC (250-450) ug/dL % Saturation (20-50) % Transferrin (192-382) mg/dL Total Bilirubin (0.2-1.0) mg/dL AST (10-42) IU/L ALT (10-60) IU/L Alkaline Phosphatase (42-121) IU/L Total Protein (6.7-8.2) g/dL Albumin (3.2-5.5) g/dL Globulin (2.1-4.2) g/dL Albumin/Globulin Ratio (1.0-2.2) Vitamin B12 (180-914) pg/mL Folate (5.90 - >24.8) ng/mL Urine Creatinine 109.4 mg/dL Ur Total Protein Timed 364 mg/dL Protein/Creatinin Ratio 3.3 H (<=0.2) 08/05/19 Range/Units 04:55 WBC (4.8-10.8) x10^3/uL RBC (4.20-5.40) 10^6/uL Hgb (12.0-16.0) g/dL Hct (37.0-47.0) % MCV (81.0-99.0) fL MCH (27.0-31.0) pg MCHC (32.0-36.0) g/dL RDW (12.0-15.0) % Plt Count (130-450) 10^3/uL MPV (7.9-10.8) fL Neut # (Auto) (1.5-6.6) 10^3/uL Lymph # (Auto) (1.5-3.5) 10^3/uL [place] # (Auto) (0.0-1.0) 10^3/uL Eos # (Auto) (0.0-0.7) 10^3/uL Baso # (Auto) (0.0-0.1) 10^3/uL Absolute Nucleated RBC x10^3/uL Nucleated RBC % /100WBC Sodium (135-145) mmol/L Potassium (3.5-5.0) mmol/L Chloride (101-111) mmol/L Carbon Dioxide (21-32) mmol/L Anion Gap (6-13) BUN (6-20) mg/dL Creatinine (0.4-1.0) mg/dL Estimated GFR (MDRD) (>89) Glucose (70-100) mg/dL Uric Acid 5.9 (2.6-7.2) mg/dL Calcium (8.5-10.3) mg/dL Magnesium (1.7-2.8) mg/dL Iron (28-170) ug/dL TIBC (250-450) ug/dL % Saturation (20-50) % Transferrin (192-382) mg/dL Total Bilirubin (0.2-1.0) mg/dL AST (10-42) IU/L ALT (10-60) IU/L Alkaline Phosphatase (42-121) IU/L Total Protein (6.7-8.2) g/dL Albumin (3.2-5.5) g/dL Globulin (2.1-4.2) g/dL Albumin/Globulin Ratio (1.0-2.2) Vitamin B12 (180-914) pg/mL Folate (5.90 - >24.8) ng/mL Urine Creatinine mg/dL Ur Total Protein Timed mg/dL Protein/Creatinin Ratio (<=0.2) Assessment/Plan - Problem List (1) Preeclampsia Impression: blood pressure responding to Norvasc P/C improving. (2) (spontaneous vaginal delivery) Impression: recovering well (3) Pericarditis Impression: responding to motrin 600 mg q8 hours (4) Pneumonia affecting , antepartum Impression: changing to ZPak Discharge medications Norvasc 5 mg daily # 30 motrin 600 mg tid synthroid 112 microgms daily Z-Miller RTC 1:45 friday
[2019-08-06] MEDS ORDERED: amLODIPine 5 MG TABLET PO ONE (10:08)
[2019-08-06] MEDS ORDERED: hydroCHLOROthiazide 25 MG TABLET PO SCH (12:02)
[2019-08-06] MEDS: hydroCHLOROthiazide 25 MG TABLET PO SCH (12:23)
[2019-08-06] MEDS ORDERED: AZITHROMYCIN 250 MG TABLET PO STA (14:42)
[2019-08-06] MEDS ORDERED: oxyCODONE 5 MG TABLET PO PRN (15:57)
[2019-08-06] MEDS: LOPERAMIDE 2 MG CAPSULE PO PRN ×2 (19:56→23:48)
[2019-08-07] MEDS ORDERED: LABETALOL 20 MG/4 ML SYRINGE IVP ONE ×2 (04:15→04:26)
[2019-08-07] MEDS ORDERED: hydrALAZINE INJ 20 MG/ML VIAL IVP ONE (05:10)
[2019-08-07 05:23] LABS: BASOPHILS # (AUTO) 0.1 10^3/uL (0.0-0.1); BASOPHILS % (AUTO) 0.6 %; EOSINOPHILS # (AUTO) 0.4 10^3/uL (0.0-0.7); EOSINOPHILS % (AUTO) 3.3 %; HGB - HEMOGLOBIN 9.6 g/dL (12.0-16.0); LYMPHOCYTES % (AUTO) 18.3 %; MEAN CORPUSCULAR HEMOGLOBIN 29.6 pg (27.0-31.0); MEAN CORPUSCULAR HGB CONC 31.9 g/dL (32.0-36.0); MEAN CORPUSCULAR VOLUME 92.9 fL (81.0-99.0); MEAN PLATELET VOLUME 9.3 fL (7.9-10.8); MONOCYTES # (AUTO) 0.7 10^3/uL (0.0-1.0); MONOCYTES % (AUTO) 6.6 %; NEUTROPHILS # (AUTO) 7.8 10^3/uL (1.5-6.6); NEUTROPHILS % (AUTO) 70.2 %; PLT - PLATELET COUNT 356 10^3/uL (130-450); RED BLOOD COUNT 3.24 10^6/uL (4.20-5.40); RED CELL DISTRIBUTION WIDTH 14.6 % (12.0-15.0); WHITE BLOOD COUNT 11.1 x10^3/uL (4.8-10.8)
[2019-08-07] MEDS ORDERED: amLODIPine 5 MG TABLET PO SCH (09:00)
[2019-08-07] MEDS: SIMETHICONE CHEW 80 MG TABLET PO SCH ×2 (09:03→15:59)
[2019-08-07] MEDS: PRENATAL VITAMIN TABLET PO SCH (09:03)
[2019-08-07] MEDS: FAMOTIDINE 20 MG TABLET PO SCH ×2 (09:05→21:09)
[2019-08-07] MEDS: AZITHROMYCIN 250 MG TABLET PO SCH (09:05)
[2019-08-07] MEDS: hydroCHLOROthiazide 25 MG TABLET PO SCH (09:06)
[2019-08-07] MEDS: LEVOTHYROXINE 112 MCG TABLET PO SCH (09:08)
[2019-08-07] MEDS: ACETAMINOPHEN 325 MG TABLET PO PRN (10:59)
--- NOTE | 2019-08-07 11:22 | PROVIDER PROGRESS NOTE ---
Assessment/Plan - Problem List (1) HCAP (healthcare-associated pneumonia) Assessment/Plan: She started the transition to the oral antibiotic yesterday (got Zithromax 500 mg po), and got an oral dose this morning (250 mg). She needs a prescription for 3 more days of Zithromax [address] [facility] (2) Pericarditis Assessment/Plan: No further pleuritic and positional chest pain. This is the season for viral pericarditis. She is tolerating the Motrin 600 mg tid with meals, today was the start of the 3rd day, of a planned 7 day total course of treatment. She needs a prescription for Motrin 600 mg tid w/ meals #13 please (3) Eclampsia (toxemia of ) Assessment/Plan: Her BP was uncontrolled yesterday and as such she could not be [facility]. Addnl BP meds were used. Her BP meds are now Norvasc 10 mg daily and HCTZ 25 mg daily, and she needs a [address] [facility]. (4) Proteinuria Assessment/Plan: This is related to her eclampsia and will be followed after [facility] by OB. She has an appointment to see Dr Celestin on of next week, 08/10/19. (5) Hypothyroidism Assessment/Plan: The reported that the last TSH was checked 1 mo ago (at [facility]) and her dose was increased from 75mcg to 100mcg then. Here, her TSH was still excessively high, therefore the 100 mcg dose is too low. The dose should be increased to 112 mcg daily, which was started as of today. She needs a new prescription for 112 mcg daily #30 w/ refills (6) Anemia Assessment/Plan: Low iron found on testing. She needs a high-iron diet and/or vitamins. (7) (spontaneous vaginal delivery) Assessment/Plan: As per OB service. (8) Pleuritic chest pain Assessment/Plan: Resolved. - Current Meds Current Meds: Current Medications Generic Name Dose Route Start Last Admin Trade Name Freq PRN Reason Stop Dose Admin Acetaminophen 325 mg 07/31/19 17:05 08/07/19 10:59 Tylenol PO 325 mg Q4HR PRN Administration PAIN Amlodipine Besylate 10 mg 08/07/19 09:00 08/07/19 09:04 Norvasc PO 10 mg DAILY HIWOT Administration Azithromycin 250 mg 08/07/19 09:00 08/07/19 09:05 Zithromax PO 08/11/19 00:00 250 mg DAILY HIWOT Administration Docusate Sodium 100 mg 07/31/19 21:00 08/06/19 09:01 Colace 100mg Capsule PO 100 mg BID HIWOT Administration Famotidine 20 mg 08/04/19 21:00 08/07/19 09:05 Pepcid PO 20 mg BID HIWOT Administration Hydrochlorothiazide 25 mg 08/06/19 13:00 08/07/19 09:06 Hydrodiuril PO 25 mg DAILY HIWOT Administration Levothyroxine Sodium 112 mcg 08/07/19 07:00 08/07/19 09:08 Synthroid PO 112 mcg QDAC HIWOT Administration Loperamide HCl 2 mg 08/06/19 19:45 08/06/19 23:48 Imodium PO 2 mg QID PRN Administration Diarrhea Multivit/Folic Acid/Iron 1 tab 08/05/19 14:00 08/07/19 09:03 Trinatal Rx 1 PO 1 tab DAILYWM HIWOT Administration Simethicone 80 mg 07/31/19 22:00 08/07/19 09:03 Mylicon PO 80 mg TID HIWOT Administration Sodium Chloride 10 ml 08/05/19 01:00 08/06/19 09:02 Normal Saline Flush 0.9% IVP Not Given 0100,0900,1700 HIWOT - Lab Result Fish Bone Diagrams: 08/07/19 05:00 08/06/19 04:25 - Additional Planning My Orders: My Active Orders 08/06/19 13:00 hydroCHLOROthiazide [Hydrodiuril] 25 mg PO DAILY 08/06/19 Lunch Low Sodium Diet [DIET] 08/07/19 07:00 Levothyroxine [Synthroid] 112 mcg PO QDAC 08/07/19 09:00 Azithromycin [Zithromax] 250 mg PO DAILY amLODIPine [Norvasc] 10 mg PO DAILY Subjective - Subjective Patient Reports: Feeling Better, Resting Comfortably, No Complaints, Other (Wants to know what meds she took this entire hospitalization, 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.) Objective Vital Signs: Vital Signs - 24 hr 08/06/19 08/06/19 08/06/19 11:50 13:00 17:00 Temperature 36.8 C Heart Rate [ 96 81 95 Monitoring electrodes] Heart Rate [ Radial] Respiratory 16 16 Rate Blood Pressure 159/101 H 146/96 H [Left Brachial artery] Blood Pressure 157/108 H 149/98 H 145/89 H [Right Brachial artery] O2 Saturation 98 97 08/06/19 08/06/19 08/07/19 20:16 23:50 04:02 Temperature 36.9 C 36.8 C Heart Rate [ Monitoring electrodes] Heart Rate [ 88 118 H 65 Radial] Respiratory 18 18 16 Rate Blood Pressure 158/110 H [Left Brachial artery] Blood Pressure 155/109 H 166/109 H [Right Brachial artery] O2 Saturation 96 08/07/19 08/07/19 08/07/19 04:32 04:37 04:43 Temperature Heart Rate [ Monitoring electrodes] Heart Rate [ 71 79 78 Radial] Respiratory 18 18 Rate Blood Pressure [Left Brachial artery] Blood Pressure 153/100 H 143/98 H 149/107 H [Right Brachial artery] O2 Saturation 97 08/07/19 08/07/19 08/07/19 05:03 05:21 05:25 Temperature Heart Rate [ Monitoring electrodes] Heart Rate [ 81 66 68 Radial] Respiratory 18 18 Rate Blood Pressure [Left Brachial artery] Blood Pressure 156/112 H 172/101 H 158/110 H [Right Brachial artery] O2 Saturation 98 95 08/07/19 08/07/19 08/07/19 05:29 05:32 05:48 Temperature Heart Rate [ Monitoring electrodes] Heart Rate [ 73 80 81 Radial] Respiratory Rate Blood Pressure [Left Brachial artery] Blood Pressure 149/100 H 143/93 H 143/92 H [Right Brachial artery] O2 Saturation 08/07/19 08/07/19 08/07/19 06:06 06:23 08:03 Temperature 37.1 C Heart Rate [ 91 Monitoring electrodes] Heart Rate [ 91 Radial] Respiratory 18 Rate Blood Pressure 144/87 H [Left Brachial artery] Blood Pressure 137/87 H 131/91 H [Right Brachial artery] O2 Saturation 95 08/07/19 10:00 Temperature Heart Rate [ 78 Monitoring electrodes] Heart Rate [ Radial] Respiratory 16 Rate Blood Pressure [Left Brachial artery] Blood Pressure 137/99 H [Right Brachial artery] O2 Saturation Oxygen O2 Source Room air I&O (Last 24 Hrs): Intake and Output Totals x24h 08/05/19 08/06/19 08/07/19 23:59 23:59 23:59 Intake Total 5256.7 2555.000 700 Output Total 1190 630 Balance 4066.7 1925.000 700 General: Alert, Oriented x3 HEENT: Mucous membr. moist/pink Respiratory: No respiratory distress - Results Results: Laboratory Results WBC 11.1 x10^3/uL (4.8-10.8) H 08/07/19 05:00 RBC 3.24 10^6/uL (4.20-5.40) L 08/07/19 05:00 Hgb 9.6 g/dL (12.0-16.0) L 08/07/19 05:00 Hct 30.1 % (37.0-47.0) L 08/07/19 05:00 MCV 92.9 fL (81.0-99.0) 08/07/19 05:00 MCH 29.6 pg (27.0-31.0) 08/07/19 05:00 MCHC 31.9 g/dL (32.0-36.0) L 08/07/19 05:00 RDW 14.6 % (12.0-15.0) 08/07/19 05:00 Plt Count 356 10^3/uL (130-450) 08/07/19 05:00 MPV 9.3 fL (7.9-10.8) 08/07/19 05:00 Neut # (Auto) 7.8 10^3/uL (1.5-6.6) H 08/07/19 05:00 Lymph # (Auto) 2.0 10^3/uL (1.5-3.5) 08/07/19 05:00 [place] # (Auto) 0.7 10^3/uL (0.0-1.0) 08/07/19 05:00 Eos # (Auto) 0.4 10^3/uL (0.0-0.7) 08/07/19 05:00 Baso # (Auto) 0.1 10^3/uL (0.0-0.1) 08/07/19 05:00 Absolute Nucleated RBC 0.00 x10^3/uL 08/07/19 05:00 Nucleated RBC % 0.0 /100WBC 08/07/19 05:00 D-Dimer 611.2 ng/mL (200.0-255.0) H 08/04/19 17:20 Anti-Xa Level 0.1 U/mL (-0.7) 08/05/19 04:55 Sodium 138 mmol/L (135-145) 08/06/19 04:25 Potassium 3.7 mmol/L (3.5-5.0) 08/06/19 04:25 Chloride 106 mmol/L (101-111) 08/06/19 04:25 Carbon Dioxide 26 mmol/L (21-32) 08/06/19 04:25 Anion Gap 6.0 (6-13) 08/06/19 04:25 BUN 15 mg/dL (6-20) 08/06/19 04:25 Creatinine 1.0 mg/dL (0.4-1.0) 08/06/19 04:25 Estimated GFR (MDRD) 69 (>89) L 08/06/19 04:25 Glucose 93 mg/dL (70-100) 08/06/19 04:25 Uric Acid 5.0 mg/dL (2.6-7.2) 08/06/19 04:25 Calcium 6.6 mg/dL (8.5-10.3) L 08/06/19 04:25 Magnesium 6.6 mg/dL (1.7-2.8) H* 08/05/19 15:24 Iron 54 ug/dL (28-170) 08/06/19 04:25 TIBC 403 ug/dL (250-450) 08/06/19 04:25 % Saturation 13 % (20-50) L 08/06/19 04:25 Transferrin 288 mg/dL (192-382) 08/06/19 04:25 Total Bilirubin 0.3 mg/dL (0.2-1.0) 08/06/19 04:25 AST 23 IU/L (10-42) 08/06/19 04:25 ALT 23 IU/L (10-60) 08/06/19 04:25 Alkaline Phosphatase 118 IU/L (42-121) 08/06/19 04:25 Lactate Dehydrogenase 155 IU/L (91-225) 07/31/19 09:50 Troponin I High Sens 10.7 ng/L (2.3-14.8) 08/04/19 19:06 B-Natriuretic Peptide 601 pg/mL (5-100) H 08/04/19 17:00 Total Protein 5.5 g/dL (6.7-8.2) L 08/06/19 04:25 Albumin 2.2 g/dL (3.2-5.5) L 08/06/19 04:25 Globulin 3.3 g/dL (2.1-4.2) 08/06/19 04:25 Albumin/Globulin Ratio 0.7 (1.0-2.2) L 08/06/19 04:25 Vitamin B12 235 pg/mL (180-914) 08/06/19 04:25 Folate 19.19 ng/mL (5.90 - >24.8) 08/06/19 04:25 TSH 26.30 uIU/mL (0.34-5.60) H 08/04/19 17:20 Free T4 0.49 ng/dL (0.58-1.64) L 08/05/19 04:55 Urine Color YELLOW 08/04/19 17:58 Urine Clarity CLEAR (CLEAR) 08/04/19 17:58 Urine pH 7.5 PH (5.0-7.5) 08/04/19 17:58 Ur Specific [place] 1.020 (1.002-1.030) 08/04/19 17:58 Urine Protein 100 mg/dL (NEGATIVE) H 08/04/19 17:58 Urine Glucose (UA) NEGATIVE mg/dL (NEGATIVE) 08/04/19 17:58 Urine Ketones NEGATIVE mg/dL (NEGATIVE) 08/04/19 17:58 Urine Occult Blood NEGATIVE (NEGATIVE) 08/04/19 17:58 Urine Nitrite NEGATIVE (NEGATIVE) 08/04/19 17:58 Urine Bilirubin NEGATIVE (NEGATIVE) 08/04/19 17:58 Urine Urobilinogen 0.2 (NORMAL) E.U./dL (NORMAL) 08/04/19 17:58 Ur Leukocyte Esterase NEGATIVE (NEGATIVE) 08/04/19 17:58 Urine RBC None Seen /HPF (0-5) 08/04/19 17:58 Urine WBC 0-3 /HPF (0-5) 08/04/19 17:58 Ur Epithelial Cells FEW Transitional /HPF (<= Few) 08/04/19 17:58 Ur Squamous Epith Cells FEW Squamous (<= Few) 08/04/19 17:58 Urine Bacteria None Seen /HPF (None Seen) 08/04/19 17:58 Urine Casts 0-2 Hyaline Casts /LPF 08/04/19 17:58 Ur Microscopic Review INDICATED 08/04/19 17:58 Urine Culture Comments NOT INDICATED 08/04/19 17:58 Urine Creatinine 109.7 mg/dL 08/06/19 04:00 Ur Total Protein Timed 254 mg/dL 08/06/19 04:00 Protein/Creatinin Ratio 2.3 (<=0.2) H 08/06/19 04:00 Membranes Rupture POSITIVE (NEGATIVE) A 07/31/19 06:15 Nasal Screen MRSA (PCR) NEGATIVE (NEGATIVE) 08/04/19 18:17 Influenza A (Rapid) Negative (Negative) 08/04/19 23:10 Influenza B (Rapid) Negative (Negative) 08/04/19 23:10
--- NOTE | 2019-08-07 13:26 | PROVIDER PROGRESS NOTE ---
Subjective - Prog Note Date Prog Note Date: 08/07/19 Prog Note Time: 12:45 - Subjective Subjective: Had severe range pressures overnight with IV labetalol administered with suboptimal response. Responded well to hydralazine. BPs have been in high normal/mild range since then. Severe range pressures occurred while sleeping. No SCHROEDER/vision change/RUQ pain. Reports that she has had hypothyroidism since age 4 and had not managed it until . Has not seen endocrinology. Minimal lochia. Not taking pain meds. Has been up and ambulating. Objective - Vital Signs/Intake & Output Vital Signs: Vital Signs x48h Temp Pulse Pulse Resp BP BP Pulse Ox 08/07/19 11:55 98.6 F 70 70 18 137/99 H 98 08/07/19 10:00 78 16 137/99 H 08/07/19 08:03 98.8 F 91 91 18 144/87 H 95 08/07/19 06:23 131/91 H 08/07/19 06:06 137/87 H 08/07/19 05:48 81 143/92 H 08/07/19 05:32 80 143/93 H 08/07/19 05:29 73 149/100 H 08/07/19 05:25 68 18 158/110 H 95 Intake & Output: Intake & Output 08/04/19 08/05/19 08/06/19 08/07/19 23:59 23:59 23:59 23:59 Intake Total 608.3 5256.7 2555.000 1440 Output Total 1985 1190 630 Balance -1376.7 4066.7 8019.658 1619 - Objective General Appearance: positive: No acute distress Respiratory: positive: No respiratory distress, Breath sounds nml Cardiovascular: positive: Other (RR) Abdomen: positive: Other (FF below umbilicus) Back: positive: Nml inspection Skin: positive: Color nml, Dry, Other (vitiligo) Neurologic/Psychiatric: positive: Oriented x3 - Lab Results Fish Bones: 08/07/19 05:00 08/06/19 04:25 Other Labs: Lab Results x24hrs 08/07/19 Range/Units 05:00 WBC 11.1 H (4.8-10.8) x10^3/uL RBC 3.24 L (4.20-5.40) 10^6/uL Hgb 9.6 L (12.0-16.0) g/dL Hct 30.1 L (37.0-47.0) % MCV 92.9 (81.0-99.0) fL MCH 29.6 (27.0-31.0) pg MCHC 31.9 L (32.0-36.0) g/dL RDW 14.6 (12.0-15.0) % Plt Count 356 (130-450) 10^3/uL MPV 9.3 (7.9-10.8) fL Neut # (Auto) 7.8 H (1.5-6.6) 10^3/uL Lymph # (Auto) 2.0 (1.5-3.5) 10^3/uL [place] # (Auto) 0.7 (0.0-1.0) 10^3/uL Eos # (Auto) 0.4 (0.0-0.7) 10^3/uL Baso # (Auto) 0.1 (0.0-0.1) 10^3/uL Absolute Nucleated RBC 0.00 x10^3/uL Nucleated RBC % 0.0 /100WBC Assessment/Plan - Problem List (1) Pre-eclampsia, severe, delivered Impression: Improving. BP in appropriate range during the day but continues to have severe range pressures overnight, while at rest, requiring IV meds x2 Reviewed medications with Critical Care, BID dosing of amlodipine not recommended Reviewed ACOG guidelines regarding management of severe range pressures. In agreement that moving to nifedipine 30 mg XL is appropriate next step Will continue to observe overnight With continued control, anticipate discharge to home in am
[2019-08-07] MEDS: SODIUM CHLORIDE FLUSH 0.9% 10 ML SYRINGE IVP SCH (16:47)
[2019-08-07] MEDS ORDERED: FLUoxetine 10 MG CAPSULE PO SCH (21:00)
[2019-08-07] MEDS: NIFEdipine ER 30 MG TABLET PO SCH (21:08)
[2019-08-07] MEDS: DOCUSATE SODIUM 100 MG CAPSULE PO SCH (21:10)
[2019-08-08] MEDS: SODIUM CHLORIDE FLUSH 0.9% 10 ML SYRINGE IVP SCH (00:19)
[2019-08-08] MEDS: SIMETHICONE CHEW 80 MG TABLET PO SCH ×2 (00:19→07:44)
[2019-08-08] MEDS: DOCUSATE SODIUM 100 MG CAPSULE PO SCH ×2 (00:35→08:28)
[2019-08-08] MEDS: LEVOTHYROXINE 112 MCG TABLET PO SCH (07:46)
[2019-08-08 08:21] VITALS: BP 137/97
--- NOTE | 2019-08-08 08:25 | PROVIDER PROGRESS NOTE ---
Hospitalist Cross-cover Note - Cross-Cover Note Cross-Cover Note: I will sign off the case. Please re-order a consult if any further help is needed from the Hospitalist service. Thank you for allowing me to participate in the care of this ingris patient.
[2019-08-08] MEDS: PRENATAL VITAMIN TABLET PO SCH (08:30)
[2019-08-08] MEDS: FAMOTIDINE 20 MG TABLET PO SCH (08:30)
[2019-08-08] MEDS: hydroCHLOROthiazide 25 MG TABLET PO SCH (08:30)
[2019-08-08] MEDS: AZITHROMYCIN 250 MG TABLET PO SCH (08:30)
[2019-08-08] MEDS: NIFEdipine ER 30 MG TABLET PO SCH (08:31)
--- NOTE | 2019-08-08 10:12 | PROVIDER PROGRESS NOTE ---
Subjective - Prog Note Date Prog Note Date: 08/08/19 Prog Note Time: 09:00 - Subjective Pt reports feeling: Improved Subjective: Doing well. BPs in mild to normal range overnight. Brief headache with nifedipine; resolved with sleep. Otherwise up and ambulating, tolerating po, pain well managed. Voiding. Objective - Vital Signs/Intake & Output Vital Signs: Vital Signs x48h Temp Pulse Pulse Resp BP BP Pulse Ox 08/08/19 08:20 97.5 F L 104 H 19 137/97 H 100 08/08/19 04:00 98.8 F 81 20 136/89 H 98 Intake & Output: Intake & Output 08/05/19 08/06/19 08/07/19 08/08/19 23:59 23:59 23:59 23:59 Intake Total 5256.7 2555.000 1940 800 Output Total 1692 973 3427 Balance 4066.7 1925.000 940 800 - Objective General Appearance: positive: No acute distress Neck: positive: Nml inspection Respiratory: positive: No respiratory distress Cardiovascular: positive: Regular rate & rhythm Abdomen: positive: Non-tender, No distention Skin: positive: Color nml Extremities: positive: No pedal edema Neurologic/Psychiatric: positive: Oriented x3 - Lab Results Fish Bones: 08/07/19 05:00 08/06/19 04:25 Assessment/Plan - Problem List (1) Pre-eclampsia, severe, delivered Impression: Doing well BPs well controlled on nifedipine 30 mg XL po Q12H and HCTZ 25 mg po daily No fevers. Sputum showed no organisms. Will continue azithromycin for 2 additional days per hospitalist Cont levothyroxine at increased dose Taking home dose fluoxetine Meeting goals for discharge Will have BP check on 08/10/19
--- NOTE | 2019-08-20 16:00 | DISCHARGE SUMMARY ---
Physician: Santos Celestin MD DATE OF ADMISSION: 07/31/2019 DATE OF DISCHARGE: 08/08/2019 ADMITTING DIAGNOSES 1. A 23-year-old G1, P0. 2. Thirty eight weeks. 3. Preeclampsia. 4. Spontaneous rupture of membranes. 5. Positive group B strep. 6. Hypothyroidism. DISCHARGE DIAGNOSES 1. A 23-year-old G1, P1. 2. Thirty eight weeks. 3. Preeclampsia. 4. Spontaneous rupture of membranes. 5. Positive group B strep. 6. Hypothyroidism. 7. Pericarditis. 8. Pneumonia. 9. Spontaneous vaginal delivery. PROCEDURES 1. Epidural. 2. Magnesium sulfate. 3. Pitocin. 4. Cardiac echo. PRESENTING HISTORY: Patient is a 23-year-old G1, P0 whose due date was 08/11/2019. This was determi misa by a 6 week ultrasound. She was 38 weeks at time of admission. She initially started her care a [facility], but was transferred to [facility] because of the change in availability at the [facility]. She received the remainder of her care at the [facility] clinic. This started at 36 we eks. She was supposed to deliver there; but because of their labor and delivery unit being closed, t ransferred to [facility]. The morning of 07/31/2019, patient developed leaking fl uid from the vagina, which was unstoppable. She developed contractions and presented at 5:20, at the [facility] time her check showed her to be positive for rupture of membranes as well as ferning. Her blood p ressures at that point were 147/97 and, because of increased reflexes, the diagnosis of preeclampsia was made. The patient started her OB care at 6 weeks EGA. She had an elevated TSH and was placed on Synthroid. She was also noted to be group B strep positive. She had proteinuria noted on her last 2 OB visits. The note stated she had PIH labs done, which were recorded as normal. MEDICATIONS ON ADMISSION: Prozac vitamins, iron, and Synthroid. PHYSICAL EXAMINATION: Her initial examination showed her to have hyperreflexia as well as clonus. LABORATORIES: CBC on admission showed a white count of 11.9, hemoglobin was 12.2, hematocrit was 36. 4, and platelets were 22. Her chemistries showed hyponatremia at 131. Her creatinine was 0.9. Her AST and ALT were both noted to be within the normal limits. She had a urine protein-creatinine ratio which was 2.6 on admission. Throughout her hospital course, her white count reached a zenith of 14. 5 and on discharge it was noted at 11.1. Her hemoglobin reached a alma of 8.8, but on discharge was 9.6. Her platelets all remained above 200. Her creatinine reached a zenith of 1.1; but [facility], it had fallen to 7.0. BUN and creatinine also stayed within normal limits. Her uric acid on discharge was 5.8, having reached a zenith of 7.8. Her protein-creatinine ratio on admission was in itially 2.6 and then raised on 08/03/2019 to 4.2. Prior to discharge, her protein-creatinine ratio h ad fallen to 2.3. She had rapid influenza A and B performed, which were both negative. IMAGING: The patient had a chest x-ray on 08/04/2019 which was read as mild pulmonary congestion. H er CT performed the same day showed no evidence of any acute or chronic pulmonary emboli. There was evidence of scattered patchy opacities in the right upper lobe, which was possibly secondary to infec tion or inflammatory process. The patient had a cardiac echo performed, which showed both LVH and le ft ventricular as well as right ventricular enlargement; however, there was excellent motion and ejec tion fraction: HOSPITAL COURSE: The patient was admitted because of her elevated protein-creatinine ratio as well a s hyperreflexia. She was started on magnesium sulfate. For this reason, she also had to have Pitoci n added. She delivered the same day. She received labetalol for blood pressure management. At 1616 , she delivered a live female , Apgars of 9 and 9. The blood loss at time of delivery was 350 mL. Post delivery, her blood pressures started to climb and we needed to increase her labetalol. Th is was increased to 600 mg without success. For this reason, she was changed to Procardia. At this particular time immediately following this dose, she developed some significant chest pain. Because of the possibility of a pulmonary embolism, hospitalist was consulted. A CT of the chest as well as x-ray were performed, both of which did not show evidence of PE; however, she was noted to have a per icardial rub by Dr. Cain. At this point, the MRI was suspicious for an apical pneumonia on the right-hand side. Because of these new changes and findings, she was taken to the ICU and monitored c losely. Her blood pressures reached a zenith of 185/115 and was eventually controlled utilizing Norv asc. This, however, had to be increased to 30 mg. Every time she was about to be discharged, she wo uld spike blood pressures, which required increasing her Norvasc doses. She was finally discharged t o home on 08/08/2019 on 30 mg of Norvasc as well as hydrochlorothiazide. She was instructed to benita w haylee in the clinic for repeat blood pressure checks. TD: 08/20/2019 13:39
== END 2019-08-08 12:20 | disposition home or self-care (01) | DRG 805 ==
LOC: WFO 05:47 → FBP 05:49 → WFO 07:01 → FBP 07:02 → ICU 08-04 17:38 → OBS 08-05 18:35
PROVIDERS: ADMIT Obstetrics & Gynecology; ATTEND Obstetrics & Gynecology
PROC: 10E0XZZ Delivery of Products of Conception, External Approach (ICD-10-PCS; principal; 2019-07-31)
PROC: 0KQM0ZZ Repair Perineum Muscle, Open Approach (ICD-10-PCS; 2019-07-31)
DX: O14.14 Severe pre-eclampsia complicating childbirth (principal); J18.9 Pneumonia, unspecified organism; Z37.0 Single live birth; I30.1 Infective pericarditis; E87.1 Hypo-osmolality and hyponatremia; O86.89 Other specified puerperal infections; Y95 Nosocomial condition; O90.81 Anemia of the puerperium; D50.9 Iron deficiency anemia, unspecified; O99.824 Streptococcus B carrier state complicating childbirth; O99.284 Endocrine, nutritional and metabolic diseases complicating childbirth; E03.9 Hypothyroidism, unspecified; O70.1 Second degree perineal laceration during delivery; O70.0 First degree perineal laceration during delivery; E83.51 Hypocalcemia; E88.09 Other disorders of plasma-protein metabolism, not elsewhere classified; R79.1 Abnormal coagulation profile; Z88.8 Allergy status to other drugs, medicaments and biological substances; Z3A.38 38 weeks gestation of pregnancy
CPT/HCPCS: 36415; 71045; 71275; 80048; 80053; 81001; 82570; 82607; 82746; 83540; 83615; 83735; 83880; 84112; 84156; 84439; 84443; 84450; 84466; 84484; 84550; 85025; 85027; 85379; 85520; 87070; 87150; 87205; 87275; 87276; 88307; 93005; 93306; 99213; A9270; J1200; J3370; J7120; Q9967; 81003; 87086

== ENCOUNTER 2020-07-28 18:38 | Emergency (ER) | payer OTHER ==
[2020-07-28 18:45] VITALS: BP 112/59
--- NOTE | 2020-07-28 18:46 | ED Physician Documentation ---
History of Present Illness - Stated complaint Stated Complaint: DIZZINESS,CP,CHILLS,FATIGUE - Chief complaint Chief Complaint: General - History obtained from History obtained from: Patient - Additonal information Additional information: 24-year-old who is breast-feeding an [id number] developed chills and breast pain tonight noting mild breast pain for the last 3 days. It was more significant today with redness. Review of Systems Constitutional: reports: Fever ("99.6"). denies: Chills Cardiac: reports: Chest pain / pressure (L breast) Respiratory: denies: Dyspnea, Cough GI: denies: Abdominal Pain, Nausea, Vomiting PD PAST MEDICAL HISTORY - Past Medical History Cardiovascular: None Respiratory: None Neuro: None Endocrine/Autoimmune: HyPOthyroidism GI: None : None Musculoskeletal: None Derm: None - Past Surgical History Past Surgical History: No - Present Medications Home Medications: Ambulatory Orders Medication Instructions Recorded Confirmed Sertraline [Zoloft] 07/28/20 cephALEXin [Keflex] 500 mg PO Q6H #28 cap 07/28/20 - Allergies Allergies/Adverse Reactions: Allergies Allergy/AdvReac Type Severity Reaction Status Date / Time iodine Allergy Hives Verified 07/28/20 18:45 - Social History Does the pt smoke?: No Smoking Status: Never smoker Does the pt drink ETOH?: No Does the pt have substance abuse?: No - Immunizations Immunizations are current?: Yes - POLST Patient has POLST: No PD ED PE NORMAL - Vitals Vital signs reviewed: Yes - General General: Alert and oriented X 3, No acute distress - Extremities Extremities: Other (Breast exam done with Dalila GARCIA present and chaperoning. She has an area of tender mastitis around 10:00 of the left breast but without fluctuance or other clinical findings of abscess.) - Neuro Neuro: Alert and oriented X 3, Normal speech - Psych Psych: Normal mood, Normal affect Results - Vitals Vitals: Vital Signs - 24 hr 07/28/20 18:43 Temperature 37.6 C Heart Rate 95 Respiratory 18 Rate Blood Pressure 112/59 L O2 Saturation 99 Oxygen O2 Source Room air Departure - Departure Disposition: 01 Home, Self Care Clinical Impression: Mastitis Condition: Good Record reviewed to determine appropriate education?: Yes Instructions: ED Breast Infec Prescriptions: cephALEXin [Keflex] 500 mg PO Q6H #28 cap Comments: You should be improving over the next couple of days, return if worsening or if not improving over a couple of days time. Follow-up with your primary care physician early next week for recheck.
[2020-07-28] MEDS ORDERED: CEPHALEXIN 250 MG Prepack 8 CAP BOTTLE PO STA (18:53)
== END 2020-07-28 19:01 | disposition home or self-care (01) ==
LOC: ED 18:38
DX: N61.0 Mastitis without abscess (principal)
CPT/HCPCS: 99282; 99283